=== PATIENT | female | born 1960 | race Caucasian/White ===

== ENCOUNTER 2020-02-07 15:00 | Emergency (ER) | payer MEDICARE, MEDICAID ==
[~2020-02-07] VITALS: Ht 157.4 cm; Wt 50.0 kg
[~2020-02-07 15:00] MED LIST: ALBU8.5H2 IH; ALPR.5T PO; AZIT-21 PO; BSP10T PO; CEFD300C3 PO; CEPH500C PO; CITA10TA70 PO; HDR4T GT; HYDR-34 PO; HYDR1TAB86 PO; IPRA3AMP19 IH; LISI1TAB6 PO; OXYC-309 PO; OXYC30TA76 PO; PRD20T PO; PREG50C PO; RT-COMBINH IH
[2020-02-07] MEDS ORDERED: NS IV 1000 ML 1,000 ML IV SCH (15:55)
[2020-02-07] MEDS ORDERED: KETOROLAC 30 MG/ML VIAL IVP ONE (16:00)
[2020-02-07 16:07] LABS: BASOPHILS % (AUTO) 0 % (0-10); EOSINOPHILS % (AUTO) 0 % (0-10); HEMATOCRIT 38 % (35-52); HEMOGLOBIN 12.3 G/DL (11.5-16.0); LYMPHOCYTES # (AUTO) 1.8 X 10^3 (1.0-4.0); LYMPHOCYTES % (AUTO) 26 % (12-44); MEAN CORPUSCULAR HEMOGLOBIN 28 PG (25-34); MEAN CORPUSCULAR HGB CONC 33 G/DL (32-36); MEAN CORPUSCULAR VOLUME 86 FL (80-99); MEAN PLATELET VOLUME 9.7 FL (7.4-10.4); MONOCYTES # (AUTO) 0.5 X 10^3 (0.0-1.0); MONOCYTES % (AUTO) 7 % (0-12); NEUTROPHILS # (AUTO) 4.6 X 10^3 (1.8-7.8); NEUTROPHILS % (AUTO) 67 % (42-75); PLATELET COUNT 331 10^3/uL (130-400); RED CELL DISTRIBUTION WIDTH 14.9 % (10.0-14.5); WHITE BLOOD COUNT 6.9 10^3/uL (4.3-11.0)
[2020-02-07 16:59] LABS: ALANINE AMINOTRANSFERASE 22 U/L (0-55); ALKALINE PHOSPHATASE 57 U/L (40-136); BILIRUBIN,TOTAL 0.2 MG/DL (0.1-1.0); BUN/CREATININE RATIO 12; CALCIUM 9.2 MG/DL (8.5-10.1); CARBON DIOXIDE 22 MMOL/L (21-32); CHLORIDE 106 MMOL/L (98-107); CREATININE SERUM 0.73 MG/DL (0.60-1.30); GFR ESTIMATED > 60; GLUCOSE 106 MG/DL (70-105); MAGNESIUM 1.9 MG/DL (1.6-2.4); POTASSIUM 3.3 MMOL/L (3.6-5.0); SODIUM 137 MMOL/L (135-145); TOTAL PROTEIN 7.8 GM/DL (6.4-8.2); TSH (THYROID ANALYZER) 1.66 UIU/ML (0.35-4.94)
--- NOTE | 2020-02-07 17:40 | NUR ---
AMB TO BATHROOM Addendum: 02/07/20 at 1750 by PMCCLURE PATIENT REPORTS THAT CON'T TO HAVE HEADACHE DR NOTIFIED.
[2020-02-07 17:47] LABS: BILIRUBIN,URINE NEGATIVE (NEGATIVE); CLARITY,URINE SL CLOUDY; COLOR,URINE YELLOW; GLUCOSE, URINE (UA) NEGATIVE (NEGATIVE); KETONES,URINE NEGATIVE (NEGATIVE); LEUKOCYTE ESTERASE ,URINE NEGATIVE (NEGATIVE); NITRITE,URINE NEGATIVE (NEGATIVE); PROTEIN,URINE NEGATIVE (NEGATIVE)
[2020-02-07 17:55] LABS: BACTERIA,URINE TRACE /HPF; RBC,URINE RARE /HPF; WBC,URINE RARE /HPF
[2020-02-07] MEDS ORDERED: lisINopril 20 MG (PRINIVIL) TABLET PO ONE (18:00)
[2020-02-07] MEDS ORDERED: KCL 10 MEQ TAB (MICRO K) PO ONE (18:00)
[2020-02-07] MEDS ORDERED: HYDROCHLOROTHIAZIDE 25 MG (HCTZ) TAB PO ONE (18:00)
[2020-02-07] MEDS ORDERED: LISI1TAB25 PO (18:07)
--- NOTE | 2020-02-07 18:07 | ED Headache ---
General Chief Complaint: Head/Cervical Problems Stated Complaint: HEADACHE Nursing Triage Note: AMB TO ROOM C/O HEADACHE INTERMITTEN FOR 3 MOMTHS WORSE LAST 3 DAYS HAS NOT BEEN TAKING B/P MEDS AND HER SISTER TOOK DID A FINGER STICK ON HER TODAY AND HER BLOOD SUGAR WAS IN THE 2OO. HAS TRIED OTC PAIN MEDS FOR HEADACHE. Nursing Sepsis Screen: No Definite Risk Source: patient Exam Limitations: no limitations History of Present Illness Date Seen by Provider: Feb 07, 2020 Time Seen by Provider: 15:48 Initial Comments This 59-year-old woman presents to the emergency room with primary complaint of headache. She has had intermittent headaches for the past 3 months but this is been worse the last 3 days. She has run out of her blood pressure medications and has not established with a primary care provider at the moment. She states this change was due to a change in insurance status. She denies any focal neurologic changes. She complains of dry mouth. She seems anxious. she also reports her glucometer readings on her sister's glucometer have been as high as the 200s. She is concerned that she has developed out of control diabetes. Allergies and Home Medications Allergies Coded Allergies: No Known Drug Allergies (Unverified , 12/09/09) Home Medications Albuterol 8.5 Gm Hfa.aer.ad, 2 PUFF IH PRN, (Reported) Albuterol Sulfate/Ipratropium 3 Ml Solution, 1 IH TID, (Reported) PER HOME NEBULIZER Alprazolam 0.5 Mg Tablet, 0.5 MG PO BID, (Reported) Buspirone Hcl 10 Mg Tablet, 10 MG PO TID, (Reported) Citalopram Hydrobromide 10 Mg Tablet, 10 MG PO DAILY, (Reported) Hctz/Lisinopril 1 Each Tablet, 1 EACH PO DAILY, (Reported) Ipratropium/Albuterol Sulfate 14.7 Gm Aer.w.adap, 2 PUFF IH TID, (Reported) Lisinopril/Hydrochlorothiazide 1 Each Tablet, 1 EACH PO DAILY Prescribed by: RAE SIERRA on 02/07/201806 Oxycodone Hcl 30 Mg Tab.sr.12h, 30 MG PO BID, (Reported) Oxycodone Hcl/Acetaminophen 1 Each Tablet, 1 EACH PO TID, (Reported) Patient Home Medication List Home Medication List Reviewed: Yes Review of Systems Review of Systems Constitutional: no symptoms reported Eyes: No Symptoms Reported Ears, Nose, Mouth, Throat: see HPI Respiratory: no symptoms reported Cardiovascular: no symptoms reported Gastrointestinal: no symptoms reported Genitourinary: no symptoms reported : No Musculoskeletal: no symptoms reported Skin: no symptoms reported Psychiatric/Neurological: See HPI Past Brjygyt-Dtdljf-Gfjljg Hx Past Med/Social Hx: Reviewed Nursing Past Med/Soc Hx Patient Social History Alcohol Use: Denies Use Recreational Drug Use: No Smoking Status: Current Everyday Smoker Recent Foreign Travel: No Contact w/Someone Who Travel: No Recent Infectious Disease Expo: No Recent Hopitalizations: Yes Immunizations Up To Date Date of Pneumonia Vaccine: Aug 14, 2011 Date of Influenza Vaccine: Aug 14, 2011 Past Medical History Surgeries: Yes (HYSTERECTOMY, CALCIUM DEP. IN RIGHT SHOULDER, HERNIATED DISC IN NECK) Hysterectomy, Orthopedic Respiratory: Yes Cardiac: Yes Hypertension Neurological: No Reproductive Disorders: No Gastrointestinal: No Musculoskeletal: Yes Endocrine: No HEENT: No Psychosocial: Yes Depression Blood Disorders: No Physical Exam Vital Signs Vital Signs - First Documented 02/07/20 15:44 Temp 36.8 Pulse 88 Resp 18 B/P (MAP) 189/112 (137) Pulse Ox 97 O2 Delivery Room Air Capillary Refill : Less Than 3 Seconds Height, Weight, BMI Height: '" Weight: lbs. oz. kg; 20.00 BMI Method:Stated General Appearance: WD/WN, mild distress HEENT: PERRL/EOMI, normal ENT inspection, TMs normal, pharynx normal, other (excessive cerumen in the left ear canal) Neck: normal inspection Cardiovascular: regular rate, rhythm, no edema, no murmur Respiratory: lungs clear, normal breath sounds, no respiratory distress Gastrointestinal: normal bowel sounds, soft, tenderness (slightly the right lower abdomen) Extremities: normal inspection, no pedal edema, no calf tenderness Psychiatric: alert, oriented x 3 Cra[place] Nerves: normal hearing, normal speech Motor/Sensory: no motor deficit, no sensory deficit Skin: normal color, warm/dry Progress/Results/Core Measures Results/Orders Lab Results Laboratory Tests Test 02/07/20 16:00 02/07/20 17:43 Range/Units White Blood Count 6.9 4.3-11.0 10^3/uL Red Blood Count 4.36 4.35-5.85 10^6/uL Hemoglobin 12.3 11.5-16.0 G/DL Hematocrit 38 35-52 % Mean Corpuscular Volume 86 80-99 FL Mean Corpuscular Hemoglobin 28 25-34 PG Mean Corpuscular Hemoglobin Concent 33 32-36 G/DL Red Cell Distribution Width 14.9 H 10.0-14.5 % Platelet Count 331 130-400 10^3/uL Mean Platelet Volume 9.7 7.4-10.4 FL Neutrophils (%) (Auto) 67 42-75 % Lymphocytes (%) (Auto) 26 12-44 % Monocytes (%) (Auto) 7 0-12 % Eosinophils (%) (Auto) 0 0-10 % Basophils (%) (Auto) 0 0-10 % Neutrophils # (Auto) 4.6 1.8-7.8 X 10^3 Lymphocytes # (Auto) 1.8 1.0-4.0 X 10^3 Monocytes # (Auto) 0.5 0.0-1.0 X 10^3 Eosinophils # (Auto) 0.0 0.0-0.3 10^3/uL Basophils # (Auto) 0.0 0.0-0.1 10^3/uL Sodium Level 137 135-145 MMOL/L Potassium Level 3.3 L 3.6-5.0 MMOL/L Chloride Level 106 98-107 MMOL/L Carbon Dioxide Level 22 21-32 MMOL/L Anion Gap 9 5-14 MMOL/L Blood Urea Nitrogen 9 7-18 MG/DL Creatinine 0.73 0.60-1.30 MG/DL Estimat Glomerular Filtration Rate > 60 BUN/Creatinine Ratio 12 Glucose Level 106 H 70-105 MG/DL Calcium Level 9.2 8.5-10.1 MG/DL Corrected Calcium 9.2 8.5-10.1 MG/DL Magnesium Level 1.9 1.6-2.4 MG/DL Total Bilirubin 0.2 0.1-1.0 MG/DL Aspartate Amino Transf (AST/SGOT) 25 5-34 U/L Alanine Aminotransferase (ALT/SGPT) 22 0-55 U/L Alkaline Phosphatase 57 40-136 U/L Total Protein 7.8 6.4-8.2 GM/DL Albumin 4.0 3.2-4.5 GM/DL TSH [place] Testing 1.66 0.35-4.94 UIU/ML Urine Color YELLOW Urine Clarity SL CLOUDY Urine pH 6.0 5-9 Urine Specific [place] 1.010 L 1.016-1.022 Urine Protein NEGATIVE NEGATIVE Urine Glucose (UA) NEGATIVE NEGATIVE Urine Ketones NEGATIVE NEGATIVE Urine Nitrite NEGATIVE NEGATIVE Urine Bilirubin NEGATIVE NEGATIVE Urine Urobilinogen 0.2 < = 1.0 MG/DL Urine Leukocyte Esterase NEGATIVE NEGATIVE Urine RBC (Auto) NEGATIVE NEGATIVE Urine RBC RARE /HPF Urine WBC RARE /HPF Urine Squamous Epithelial Cells 5-10 /HPF Urine Crystals NONE /LPF Urine Bacteria TRACE /HPF Urine Casts NONE /LPF Urine Mucus NEGATIVE /LPF Urine Culture Indicated NO My Orders Orders - RAE RIVAS MD Cbc With Automated Diff (02/07/20 15:55) Comprehensive Metabolic Panel (02/07/20 15:55) Magnesium (02/07/20 15:55) Thyroid Analyzer (02/07/20 15:55) Ua Culture If Indicated (02/07/20 15:55) Ed Iv/Invasive Line Start (02/07/20 15:55) Ns Iv 1000 Ml (Sodium Chloride 0.9%) (02/07/20 15:55) Ketorolac Injection (Toradol Injection) (02/07/20 16:00) Lisinopril Tablet (Zestril Tablet) (02/07/20 18:00) Hydrochlorothiazide Cap/Tablet (Hctz Cap (02/07/20 18:00) Tramadol Tablet (Ultram Tablet) (02/07/20 18:00) Potassium Chloride (Tablet) (Klor Con Ta (02/07/20 18:00) Medications Given in ED Current Medications Medications Dose Ordered Sig/Zulema Route Start Time Stop Time Status Last Admin Dose Admin Hydrochlorothiazide 25 mg ONCE ONCE PO 02/07/20 18:00 02/07/20 18:01 DC 02/07/20 18:11 25 MG Ketorolac Tromethamine 15 mg ONCE ONCE IVP 02/07/20 16:00 02/07/20 16:01 DC 02/07/20 16:09 15 MG Lisinopril 20 mg ONCE ONCE PO 02/07/20 18:00 02/07/20 18:01 DC 02/07/20 18:10 20 MG Potassium Chloride 20 meq ONCE ONCE PO 02/07/20 18:00 02/07/20 18:01 DC 02/07/20 18:10 20 MEQ Tramadol HCl 50 mg ONCE ONCE PO 02/07/20 18:00 02/07/20 18:01 DC 02/07/20 18:09 50 MG Vital Signs/I&O 02/07/20 02/07/20 15:44 18:14 Temp 36.8 Pulse 88 100 Resp 18 18 B/P (MAP) 189/112 (137) 145/97 Pulse Ox 97 96 O2 Delivery Room Air Room Air Blood Pressure Mean: 137 Progress Progress Note : Progress Note patient was noted to be quite hypertensive. She was first treated with Toradol and IV fluids for headache. She had some residual headache and tramadol was given. Patient was given lisinopril 20 mg and hydrochlorothiazide 25 mg. She p reviously had been on lisinopril/HCTZ with the lisinopril dose of 20 mg. The importance of following up with a primary care provider was stressed. Work-up was unremarkable. Departure Impression Primary Impression: Acute headache Qualified Codes: R51 - Headache Additional Impression: Essential hypertension Disposition: HOME, SELF-CARE Condition: Improved Departure-Patient Inst. Decision time for Depature: 18:04 Referrals: GARRETT CATALAN MD (PCP/Family) Primary Care Physician Patient Instructions: Headache, Adult, High Blood Pressure (DC) Add. Discharge Instructions: Drink plenty of water. Eat a low sugar, low carbohydrate diet. Follow-up with a primary care provider as soon as possible. Start your blood pressure medication tomorrow. For pain you may take ibuprofen up to 400 mg every 6 hours as needed and/or Tylenol (acetaminophen) up to 650 mg every 6 hours. Return to the emergency room if you have worsening symptoms or if you're just not improving after a couple days of following this treatment plan. All discharge instructions reviewed with patient and/or family. Voiced understanding. Scripts Lisinopril/Hydrochlorothiazide (Lisinopril-Hctz 20-12.5 mg Tab) 1 Each Tablet 1 EACH PO DAILY, #20 TAB Prov: RAE RIVAS MD 02/07/20 RAE RIVAS MD Feb 07, 2020 18:07
[2020-02-07 18:14] VITALS: BP 145/97
== END 2020-02-07 18:17 | disposition home or self-care (01) ==
LOC: EDUNIT# 15:00 → ER 15:01
DX: R51 Headache (principal); I10 Essential (primary) hypertension; F32.9 Major depressive disorder, single episode, unspecified; F41.9 Anxiety disorder, unspecified; F17.200 Nicotine dependence, unspecified, uncomplicated
CPT/HCPCS: 36415; 80053; 81000; 83735; 84443; 85025

== ENCOUNTER → 2020-10-09 | Outpatient (CLI) | payer MEDICARE, MEDICAID ==
[~2020-10-09] MED LIST changes: +LISI1TAB46 PO; +RT-ALBUTEROL SULF 2.5 MG/3 ML PRE-MIX VIAL INH ONE
== END ==
LOC: RT 13:00
PROVIDERS: ATTEND Nurse Practitioner Family
DX: J44.9 Chronic obstructive pulmonary disease, unspecified (principal)
CPT/HCPCS: 94060; 94726; 94729

== ENCOUNTER → 2020-10-09 | Outpatient (CLI) | payer MEDICARE, MEDICAID ==
[~2020-10-09] MED LIST changes: -RT-ALBUTEROL SULF 2.5 MG/3 ML PRE-MIX VIAL INH ONE
--- NOTE | 2020-10-09 15:18 | Diagnostic Imaging Report ---
EXAMINATION: CT chest without contrast (lung screening). TECHNIQUE: Multiple contiguous axial images were obtained through the chest without the use of intravenous contrast according to lung cancer screening protocol. All CT scans use one or more of the following dose optimizing techniques: automated exposure control, MA and/or KvP adjustment based on patient size and exam type or iterative reconstruction. HISTORY: 30 pack year history of smoking. COMPARISON: None available. FINDINGS: There is no edema or pneumonia. No pleural effusion. No pneumothorax. There is a 5 mm average diameter right upper lobe nodule. There is bronchial wall thickening and anterior fibrosis in both lungs. There is scarring in the right middle lobe and lingula. There is no axillary or supraclavicular lymphadenopathy. There is no mediastinal lymphadenopathy. There is a small hiatal hernia. Heart size is normal. There are moderate coronary artery calcifications. No pericardial effusion. Aorta is normal in caliber. Limited views of the upper abdomen are unremarkable. There are no suspicious osseus lesions. IMPRESSION: 1. Benign-appearing lung nodules. 2. 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 LUNG-RADS CATEGORY: 2 MODIFIER: S Dictated by: Dictated on workstation # [id number]
== END ==
LOC: RAD 12:56
PROVIDERS: ATTEND Nurse Practitioner Family
DX: R91.8 Other nonspecific abnormal finding of lung field (principal); F17.210 Nicotine dependence, cigarettes, uncomplicated
CPT/HCPCS: 71271

== ENCOUNTER → 2020-10-29 | Outpatient (CLI) | payer MEDICARE, MEDICAID ==
[~2020-10-29] VITALS: Ht 157.5 cm; Wt 50.0 kg
[~2020-10-29] MED LIST changes: +IPRA3AMP31 IH; +PANT40TA52 PO; +RT-ALBUINH IH
== END | disposition home or self-care (01) ==
LOC: PREOP 11:22
PROVIDERS: ATTEND Internal Medicine Critical Care Medicine
DX: Z01.818 Encounter for other preprocedural examination (principal)

== ENCOUNTER → 2020-10-29 | Outpatient (CLI) | payer MEDICARE, MEDICAID | LOC: LABNPT 09:39 | PROVIDERS: ATTEND Nurse Practitioner Family | DX: R91.8 Other nonspecific abnormal finding of lung field (principal); R05 Cough; Z20.822 Contact with and (suspected) exposure to COVID-19 | CPT/HCPCS: 87635 ==

== ENCOUNTER 2020-10-31 06:57 | Day surgery (SDC) | payer MEDICARE, MEDICAID ==
[2020-10-31] VITALS (9 sets, daily range): BP systolic 136–166; BP diastolic 69–78
[~2020-10-31] VITALS: Ht 158 cm; Wt 50.0 kg
[~2020-10-31 06:57] MED LIST changes: -IPRA3AMP31 IH; -RT-ALBUINH IH
[2020-10-31] MEDS ORDERED: LIDOCAINE PF 2% 5 ML (XYLOCAINE) VIAL INJ ONE (06:58)
[2020-10-31] MEDS ORDERED: LIDOCAINE PF 1% 2 ML AMP IJ ONE (06:58)
[2020-10-31] MEDS ORDERED: LIDOCAINE JELLY 2% 6 ML SYRINGE MM ONE (06:58)
[2020-10-31] MEDS ORDERED: LACTATED RINGERS 1,000 ML IV ONE (07:02)
[2020-10-31] MEDS ORDERED: LACTATED RINGERS 1,000 ML IV STA (07:10)
--- NOTE | 2020-10-31 08:44 | Pulmonary Procedures ---
Pulmonary Procedures Date of Procedure Date of Service: October 31, 2020 Bronch Bronchoscopy with RML bronchoalveolar lavage (BAL), transbronchial washes and, brushes. Preop DX bronchiectasis PNA Postop DX: same Complications: none After informed consent obtained and formal time out pt was sedated using Fentanyl and Versed. Bronchoscope was advanced through the nare and vocal cords. 1% lidocaine was used to anesthetize vocal cords, epiglottis, aly, and left/right main stem bronchus. An anatomical tour was undertaken down to the segmental bronchi bilaterally. No endobronchial lesions noted. From the RML a bronchoalveolar lavage (BAL), transbronchial washes and, brushes were obtained. Pt tolerated procedure well. No complications noted. Stat CXR is pending. AROLDO FREED DO October 31, 2020 08:44
[2020-10-31] MEDS ORDERED: MIDAZOLAM 5 MG/5 ML (VERSED) VIAL ONE (08:54)
[2020-10-31] MEDS ORDERED: fentaNYL INJ 100 MCG/2 ML AMP ONE (08:54)
--- NOTE | 2020-10-31 10:13 | Diagnostic Imaging Report ---
INDICATION: Follow-up bronchoscopy. EXAMINATION: Portable chest at 10:06 a.m. FINDINGS: Heart size and pulmonary vascularity are normal. Lungs are clear. There are no effusions or pneumothoraces. There is a small hiatal hernia. IMPRESSION: Negative chest. Dictated by: Dictated on workstation # [id number]
[2020-10-31] MEDS ORDERED: RT-ALBUINH IH (15:56)
[2020-10-31] MEDS ORDERED: IPRA3AMP31 IH ×2 (15:56)
== END 2020-10-31 10:10 | disposition home or self-care (01) ==
LOC: ENDO 06:57
PROVIDERS: ATTEND Internal Medicine Critical Care Medicine
DX: J47.9 Bronchiectasis, uncomplicated (principal); J18.9 Pneumonia, unspecified organism; R91.8 Other nonspecific abnormal finding of lung field; Z20.822 Contact with and (suspected) exposure to COVID-19; Z79.899 Other long term (current) drug therapy; F17.210 Nicotine dependence, cigarettes, uncomplicated
CPT/HCPCS: 71045; 87015; 87070; 87077; 87101; 87116; 87181; 87184; 87185; 87205; 87206; 88112; 88305; 88312

== ENCOUNTER → 2020-11-27 | Outpatient (CLI) | payer MEDICARE, MEDICAID ==
[~2020-11-27] MED LIST changes: +CATHETER FLUSH 10 ML SYR IV PRN; +HOLD METFORMIN - RECEIVED CONTRAST 20 ML VIAL IV SCH; +IOHEXOL 350 MG/ML 100 ML (OMNIPAQUE 350) VIAL IV ONE; +IPRA3AMP31 IH; +NS 100 ML (IVPB) BAG IV ONE; +RT-ALBUINH IH
[2020-11-27 13:24] LABS: BUN/CREATININE RATIO 15; CREATININE SERUM 0.81 MG/DL (0.60-1.30); GFR ESTIMATED > 60
--- NOTE | 2020-11-27 15:18 | Diagnostic Imaging Report ---
EXAMINATION: CT chest with intravenous contrast. TECHNIQUE: Multiple contiguous axial images were obtained through the chest after the uneventful administration of intravenous contrast. All CT scans use one or more of the following dose optimizing techniques: automated exposure control, MA and/or KvP adjustment based on patient size and exam type or iterative reconstruction. HISTORY: Streptococcal infectious disease. COMPARISON: 02/12/2011 FINDINGS: There is a right upper lobe scarring in the region of the previously seen pneumonia on the prior CTA of the chest. There is also scarring in the left upper lobe. There is mucous plugging and mild bronchial dilation. No pleural effusion. No pneumothorax. No suspicious nodules. There is no axillary or supraclavicular lymphadenopathy. There is no mediastinal lymphadenopathy. There is a moderate-sized hiatal hernia. Heart size is normal. There are mild coronary artery calcifications. No pericardial effusion. Aorta is normal in caliber. Limited views of the upper abdomen are unremarkable. There are no suspicious osseous lesions. IMPRESSION: 1. Bilateral upper lobe scarring in the previously seen area of consolidation suggestive of post infectious scarring. Differential is an endobronchial infection such as mycobacterium avium. Dictated by: Dictated on workstation # [id number]
== END ==
LOC: RAD 14:15
PROVIDERS: ATTEND Nurse Practitioner Family
DX: A49.1 Streptococcal infection, unspecified site (principal)
CPT/HCPCS: 36415; 71260; 82565; 84520

== ENCOUNTER 2021-04-19 15:45 | Inpatient (IN) | payer MEDICARE, MEDICAID ==
[~2021-04-19] VITALS: Ht 71 cm; Wt 62.7 kg
[~2021-04-19 15:45] MED LIST changes: -CATHETER FLUSH 10 ML SYR IV PRN; -HOLD METFORMIN - RECEIVED CONTRAST 20 ML VIAL IV SCH; -IOHEXOL 350 MG/ML 100 ML (OMNIPAQUE 350) VIAL IV ONE; -NS 100 ML (IVPB) BAG IV ONE
--- NOTE | 2021-04-19 15:51 | ED Abdominal Pain ---
General Stated Complaint: ABD PAIN Source of Information: Patient Exam Limitations: No Limitations History of Present Illness Date Seen by Provider: Apr 19, 2021 Time Seen by Provider: 15:50 Initial Comments To ER with c/o abdominal pain since midnight last night. Nausea but no vomiting. No fevers. No bowel movements. Nothing to eat since yesterday and not on anticoagulation. Primary care is [facility]. No history of abdominal surgery. Timing/Duration: 1-2 Days Severity/Quality: Moderate Location: Generalized Abdomen Radiation: No Radiation Activities at Onset: None Allergies and Home Medications Allergies Coded Allergies: No Known Drug Allergies (Unverified , 12/09/09) Patient Home Medication List Home Medication List Reviewed: Yes Albuterol Sulfate (Proair Hfa) 1 Puff Puff, 2 PUFF IH PRN, (Reported) Entered as Reported by: SOFIA CONNELL on 10/31/20 1556 Ipratropium/Albuterol Sulfate (Iprat-Albut 0.5-3(2.5) mg/3 ml) 3 Ml Ampul.neb, 3 ML IH Q4H PRN for SHORTNESS OF BREATH, (Reported) Entered as Reported by: SOFIA CONNELL on 10/31/20 1556 Ipratropium/Albuterol Sulfate (Iprat-Albut 0.5-3(2.5) mg/3 ml) 3 Ml Ampul.neb, 3 ML IH Q6H PRN for SHORTNESS OF BREATH, (Reported) Entered as Reported by: SOFIA CONNELL on 10/31/20 1556 Lisinopril/Hydrochlorothiazide (Lisinopril-Hctz 20-12.5 mg Tab) 1 Each Tablet, 1 EACH PO DAILY Prescribed by: RAE SIERRA on 02/07/20 1807 Pantoprazole Sodium (Pantoprazole Sodium) 40 Mg Tablet.dr, 40 MG PO DAILY, (Reported) Entered as Reported by: MAHESH BE on 10/29/20 1548 Review of Systems Review of Systems Constitutional: see HPI EENTM: No Symptoms Reported Respiratory: No Symptoms Reported Cardiovascular: See HPI Gastrointestinal: See HPI, Abdominal Pain Genitourinary: No Symptoms Reported Musculoskeletal: no symptoms reported Skin: no symptoms reported Psychiatric/Neurological: No Symptoms Reported Endocrine: No Symptoms Reported Past Huoknwe-Hnuien-Tvevsq Hx Immunizations Up To Date Tetanus Booster (TDap): Unknown Past Medical History Surgeries: Yes (HYSTERECTOMY, CALCIUM DEP. 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 oz. kg; 20.02 BMI Method:Stated General Appearance: WD/WN, moderate distress, other (Chronically ill appears older than stated age) HEENT: PERRL/EOMI, normal ENT inspection Neck: non-tender, full range of motion Respiratory: no respiratory distress, no accessory muscle use, wheezing Cardiovascular: regular rate, rhythm Gastrointestinal: abnormal bowel sounds (Hypoactive bowel sounds abdomen firm, diffuse rebound tenderness), distended, guarding, rebound, tenderness Neurologic/Psychiatric: alert, normal mood/affect, oriented x 3 Skin: normal color, warm/dry Focused Exam Lactate Level 04/19/21 16:20: Lactic Acid Level 3.77*H Lactic Acid Level Laboratory Tests Test 04/19/21 16:20 Lactic Acid Level 3.77 MMOL/L (0.50-2.00) *H Procedures/Interventions Lumen: triple Central Line Procedure: betadine prep, sterile drapes applied, sterile dressing applied Position: internal jugular (R) Anesthesia: local Volume Anesthetic (ccs): 4 Complications: none Post Position: sutured, good blood return, position confirmed w/ CXR IV : Location: Right Site: Antecubital IV Catheter Type: Peripheral IV Progress/Results/Core Measures Results/Orders Lab Results Laboratory Tests Test 04/19/21 16:20 04/19/21 16:42 Range/Units White Blood Count 12.5 H 4.3-11.0 10^3/uL Red Blood Count 4.63 3.80-5.11 10^6/uL Hemoglobin 11.9 11.5-16.0 g/dL Hematocrit 38 35-52 % Mean Corpuscular Volume 83 80-99 fL Mean Corpuscular Hemoglobin 26 25-34 pg Mean Corpuscular Hemoglobin Concent 31 L 32-36 g/dL Red Cell Distribution Width 16.3 H 10.0-14.5 % Platelet Count 317 130-400 10^3/uL Mean Platelet Volume 10.3 9.0-12.2 fL Immature Granulocyte % (Auto) 1 % Neutrophils (%) (Auto) 87 H 42-75 % Lymphocytes (%) (Auto) 5 L 12-44 % Monocytes (%) (Auto) 7 0-12 % Eosinophils (%) (Auto) 0 0-10 % Basophils (%) (Auto) 0 0-10 % Neutrophils # (Auto) 10.9 H 1.8-7.8 10^3/uL Lymphocytes # (Auto) 0.7 L 1.0-4.0 10^3/uL Monocytes # (Auto) 0.8 0.0-1.0 10^3/uL Eosinophils # (Auto) 0.0 0.0-0.3 10^3/uL Basophils # (Auto) 0.0 0.0-0.1 10^3/uL Immature Granulocyte # (Auto) 0.1 0.0-0.1 10^3/uL Neutrophils % (Manual) 77 % Lymphocytes % (Manual) 6 % Monocytes % (Manual) 7 % Band Neutrophils 10 % Blood Morphology Comment NORMAL Prothrombin Time 16.6 H 12.2-14.7 SEC INR Comment 1.3 0.8-1.4 Activated Partial Thromboplast Time 76 H 24-35 SEC Sodium Level 135 135-145 MMOL/L Potassium Level 4.0 3.6-5.0 MMOL/L Chloride Level 103 98-107 MMOL/L Carbon Dioxide Level 14 L 21-32 MMOL/L Anion Gap 18 H 5-14 MMOL/L Blood Urea Nitrogen 42 H 7-18 MG/DL Creatinine 2.34 H 0.60-1.30 MG/DL Estimat Glomerular Filtration Rate 21 BUN/Creatinine Ratio 18 Glucose Level 111 H 70-105 MG/DL Lactic Acid Level 3.77 *H 0.50-2.00 MMOL/L Calcium Level 9.3 8.5-10.1 MG/DL Corrected Calcium 9.5 8.5-10.1 MG/DL Total Bilirubin 0.7 0.1-1.0 MG/DL Aspartate Amino Transf (AST/SGOT) 49 H 5-34 U/L Alanine Aminotransferase (ALT/SGPT) 24 0-55 U/L Alkaline Phosphatase 75 40-136 U/L Total Protein 7.6 6.4-8.2 GM/DL Albumin 3.8 3.2-4.5 GM/DL Lipase 54 8-78 U/L SARS-CoV-2 RNA (RT-PCR) Not Detected Not Detecte My Orders Orders - BENI ARANDA [employer] 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 Cbc With Automated Diff (04/19/21 15:48) Comprehensive Metabolic Panel (04/19/21 15:48) Blood Culture (04/19/21 15:48) Sputum Culture (04/19/21 15:48) Urinalysis (04/19/21 15:48) Urine Culture (04/19/21 15:48) Protime With Inr (04/19/21 15:48) Partial Thromboplastin Time (04/19/21 15:48) Chest 1 View, Ap/Pa Only (04/19/21 15:48) Ed Iv/Invasive Line Start (04/19/21 15:48) Ed Iv/Invasive Line Start (04/19/21 15:48) Vital Signs Adult Sepsis Patie Q15M (04/19/21 15:48) O2 (04/19/21 15:48) Remove Rings In Anticipation O (04/19/21 15:48) Lactic Acid Analyzer (04/19/21 15:48) Lipase (04/19/21 15:48) Lactated Ringers (Lr 1000 Ml Iv Solution (04/19/21 16:00) Fentanyl Inj (Sublimaze Injection) (04/19/21 16:00) Ct Abdomen/Pelvis W (04/19/21 16:18) Ekg Tracing (04/19/21 16:26) Covid 19 Inhouse Test (04/19/21 16:26) Manual Differential (04/19/21 16:20) Iohexol Injection (Omnipaque 350 Mg/Ml 1 (04/19/21 16:45) Received Contrast (Hold Metformin- Contr (04/19/21 16:45) Ns (Ivpb) (Sodium Chloride 0.9% Ivpb Bag (04/19/21 16:45) Hydromorphone Injection (Dilaudid Inject (04/19/21 16:45) Ondansetron Injection (Zofran Injectio (04/19/21 17:00) Ondansetron Injection (Zofran Injectio (04/19/21 16:47) Heparin Drip 92398 Unit/500ml (Heparin (04/19/21 17:00) Heparin (Bolus Per Protocol) (Heparin (B (04/19/21 17:00) Piperacillin Sodium/Tazobactam (Zosyn Vi (04/19/21 17:00) Medications Given in ED Current Medications Medications Dose Ordered Sig/Zulema Route Start Time Stop Time Status Last Admin Dose Admin Fentanyl Citrate 50 mcg ONCE ONCE IVP 04/19/21 16:00 04/19/21 16:01 DC 04/19/21 16:21 50 MCG Hydromorphone HCl 0.5 mg ONCE ONCE IV 04/19/21 16:45 04/19/21 16:46 DC 04/19/21 16:53 0.5 MG Iohexol 100 ml ONCE ONCE IV 04/19/21 16:45 04/19/21 16:46 DC 04/19/21 16:37 66 ML Ondansetron HCl 4 mg ONCE ONCE IVP 04/19/21 17:00 04/19/21 17:01 DC 04/19/21 16:53 4 MG Sodium Chloride 100 ml ONCE ONCE IV 04/19/21 16:45 04/19/21 16:46 DC 04/19/21 16:37 80 ML Vital Signs/I&O 04/19/21 15:45 Temp 37.0 Pulse 109 Resp 20 B/P (MAP) 88/41 (57) Pulse Ox 94 O2 Delivery Room Air Departure Communication (Admissions) 1704 pain is better controlled after Dilaudid. She has poor IV access so I will start a central line before we heparinize her. I spoke with Dr. Cox on-call for surgery and Dr. Cordero from hospitalist service. Will admit to ICU on full heparin protocol as I have concern about ischemic get given the pain out of proportion to exam without significant CT findings. She does have an elevated lactic acid. 1757-blood pressure currently 80/56. She weighs 32 kg and has received 500 mill normal saline bolus from EMS and 1 L LR bolus from us totaling 1500 mL. If the next map reading is under 65 we will start pressors. Family Conversation NAME: CASIE FINLEY [facility] REC#: [id number] PT STATUS: REG ER : 1960 PHYSICIAN: BENI ARANDA APRN ADMIT DATE: 04/19/21/ER Draft Date of Exam:04/19/21 CT ABDOMEN/PELVIS W CT ABDOMEN/PELVIS W TECHNIQUE: Multiple contiguous axial images were obtained through the abdomen and pelvis after administration of intravenous contrast. All CT scans use one or more of the following dose optimizing techniques: automated exposure control, MA and/or KvP adjustment based on patient size and exam type or iterative reconstruction. INDICATION: Abdominal pain COMPARISON: CT chest from 11/27/2020 FINDINGS: Lower chest: Chronic subsegmental atelectasis within the right middle lobe. No pericardial or pleural effusion. Peritoneum: No free intraperitoneal air or fluid. Liver and biliary system: The liver is normal. The gallbladder is normal. No biliary duct dilation. Spleen and Pancreas: Spleen is normal. The pancreas enhances normally without mass lesion or peripancreatic inflammatory changes. Adrenals: Normal. tract: The kidneys enhance normally without suspicious mass or obstruction. Urinary bladder is distended without wall thickening. Hysterectomy. GI tract: Large paraesophageal hiatal hernia is fluid-filled. The stomach within the abdomen is also fluid-filled. No dilated loops of small bowel. The colon is filled with stool throughout its entirety as well as air within the transverse colon. In the mid to upper rectum there is a short segment of luminal narrowing. No pneumatosis. Appendix is not seen with certainty. Vasculature and Lymph nodes: Normal caliber aorta. No abdominal or pelvic lymphadenopathy. Musculoskeletal: No concerning osseous lesion. IMPRESSION: 1. Large volume of stool and air throughout the colon without colitis or diverticulitis. The short segment of luminal narrowing in the mid-upper rectum that could represent a site of peristalsis, although rectal neoplasm is a possibility. Correlation with endoscopy is suggested, as patient condition permits. 2. Large hiatal hernia. Dictated on workstation # [id number] Dict: 04/19/21 1639 Trans: 04/19/21 1649 CVB [id number] Interpreted by: ISMAEL HUSTON MD Electronically signed by: Was able to obtain IV access with ultrasound guidance. 20-gauge left antecubital fossa. Concern for potential aortic pathology, for this reason I would prefer not to wait on kidney function prior to administering contrast for evaluation of this abdominal pain. I discussed with the patient the potential that IV contrast could worsen kidney function if there is pre-existing kidney dysfunction. Discussed with her that I think that this risk is offset by the potential benefit of early diagnosis of a potentially life-threatening pathology. She agrees to proceed. Impression Primary Impression: Abdominal pain Additional Impression: ALIVIA (acute kidney injury) Disposition: ADMITTED INPATIENT Condition: Stable Admissions Decision to Admit Reason: Admit from ER (General) Decision to Admit/Date: Apr 19, 2021 Time/Decision to Admit Time: 17:04 Departure-Patient Inst. Referrals: GARRETT CATALAN MD (PCP/Family) Primary Care Physician BENI ARANDA APRN Apr 19, 2021 15:51
[2021-04-19] MEDS ORDERED: fentaNYL INJ 100 MCG/2 ML AMP IVP ONE (16:00)
[2021-04-19] MEDS ORDERED: LACTATED RINGERS 1,000 ML IV SCH (16:00)
[2021-04-19 16:29] LABS: BASOPHILS % (AUTO) 0 % (0-10); EOSINOPHILS % (AUTO) 0 % (0-10); HEMATOCRIT 38 % (35-52); HEMOGLOBIN 11.9 g/dL (11.5-16.0); LYMPHOCYTES # (AUTO) 0.7 10^3/uL (1.0-4.0); LYMPHOCYTES % (AUTO) 5 % (12-44); MEAN CORPUSCULAR HEMOGLOBIN 26 pg (25-34); MEAN CORPUSCULAR HGB CONC 31 g/dL (32-36); MEAN CORPUSCULAR VOLUME 83 fL (80-99); MEAN PLATELET VOLUME 10.3 fL (9.0-12.2); MONOCYTES # (AUTO) 0.8 10^3/uL (0.0-1.0); MONOCYTES % (AUTO) 7 % (0-12); NEUTROPHILS # (AUTO) 10.9 10^3/uL (1.8-7.8); NEUTROPHILS % (AUTO) 87 % (42-75); PLATELET COUNT 317 10^3/uL (130-400); WHITE BLOOD COUNT 12.5 10^3/uL (4.3-11.0)
[2021-04-19 16:41] LABS: INR 1.3 (0.8-1.4); PROTHROMBIN TIME PATIENT 16.6 SEC (12.2-14.7)
[2021-04-19] MEDS ORDERED: IOHEXOL 350 MG/ML 100 ML (OMNIPAQUE 350) VIAL IV ONE (16:45)
[2021-04-19] MEDS ORDERED: HYDROmorphone 2 MG/ML VIAL (DILAUDID) IV ONE ×2 (16:45→17:30)
[2021-04-19] MEDS ORDERED: HOLD METFORMIN - RECEIVED CONTRAST 20 ML VIAL IV SCH (16:45)
[2021-04-19] MEDS ORDERED: NS 100 ML (IVPB) BAG IV ONE (16:45)
[2021-04-19] MEDS ORDERED: ONDANSETRON 4 MG/2 ML (SDV) Z0FRAN ONE (16:47)
--- NOTE | 2021-04-19 16:48 | Diagnostic Imaging Report ---
INDICATION: Sepsis. EXAMINATION: Chest 04/19/2021 COMPARISON: 10/31/2020 FINDINGS: There is linear scarring or atelectasis of the right lung base with remaining lungs clear. No infiltrates or effusions. No pneumothorax. Heart and pulmonary vasculature appear unremarkable. IMPRESSION: 1. Atelectasis or scar at the right lung base otherwise negative chest. Dictated by: Dictated on workstation # [id number]
--- NOTE | 2021-04-19 16:49 | Diagnostic Imaging Report ---
CT ABDOMEN/PELVIS W TECHNIQUE: Multiple contiguous axial images were obtained through the abdomen and pelvis after administration of intravenous contrast. All CT scans use one or more of the following dose optimizing techniques: automated exposure control, MA and/or KvP adjustment based on patient size and exam type or iterative reconstruction. INDICATION: Abdominal pain COMPARISON: CT chest from 11/27/2020 FINDINGS: Lower chest: Chronic subsegmental atelectasis within the right middle lobe. No pericardial or pleural effusion. Peritoneum: No free intraperitoneal air or fluid. Liver and biliary system: The liver is normal. The gallbladder is normal. No biliary duct dilation. Spleen and Pancreas: Spleen is normal. The pancreas enhances normally without mass lesion or peripancreatic inflammatory changes. Adrenals: Normal. tract: The kidneys enhance normally without suspicious mass or obstruction. Urinary bladder is distended without wall thickening. Hysterectomy. GI tract: Large paraesophageal hiatal hernia is fluid-filled. The stomach within the abdomen is also fluid-filled. No dilated loops of small bowel. The colon is filled with stool throughout its entirety as well as air within the transverse colon. In the mid to upper rectum there is a short segment of luminal narrowing. No pneumatosis. Appendix is not seen with certainty. Vasculature and Lymph nodes: Normal caliber aorta. No abdominal or pelvic lymphadenopathy. Musculoskeletal: No concerning osseous lesion. IMPRESSION: 1. Large volume of stool and air throughout the colon without colitis or diverticulitis. The short segment of luminal narrowing in the mid-upper rectum that could represent a site of peristalsis, although rectal neoplasm is a possibility. Correlation with endoscopy is suggested, as patient condition permits. 2. Large hiatal hernia. Dictated by: Dictated on workstation # [id number]
[2021-04-19 16:51] LABS: ALBUMIN 3.8 GM/DL (3.2-4.5); BILIRUBIN,TOTAL 0.7 MG/DL (0.1-1.0); CALCIUM 9.3 MG/DL (8.5-10.1); CREATININE SERUM 2.34 MG/DL (0.60-1.30); TOTAL PROTEIN 7.6 GM/DL (6.4-8.2)
[2021-04-19 16:56] LABS: BAND NEUTROPHILS 10 %; LYMPHOCYTES % (MANUAL) 6 %; MONOCYTES % (MANUAL) 7 %; NEUTROPHILS % (MANUAL) 77 %; RBC MORPH NORMAL
[2021-04-19] MEDS ORDERED: ONDANSETRON 4 MG/2 ML (SDV) Z0FRAN IVP ONE (17:00)
[2021-04-19] MEDS ORDERED: HEParin 1000 UNIT/ML (10ML VIAL) FOR BOLUS IV ONE (17:00)
[2021-04-19] MEDS ORDERED: PIPERACILLIN SODIUM/TAZOBACTAM 4.5 GM in NS (IVPB) 100 ML IV ONE (17:00)
[2021-04-19] MEDS ORDERED: HEParin DRIP 25000 UNIT/500ML 500 ML IV ONE (17:00)
[2021-04-19] MEDS ORDERED: HYDROmorphone 2 MG/ML VIAL (DILAUDID) ONE (17:28)
--- NOTE | 2021-04-19 17:40 | Tele-ICU Consult ---
History of Present Illness History of Present Illness Date Seen by Provider: Apr 19, 2021 Time Seen by Provider: 17:02 Date of Admission This virtual visit was conducted using real time audio/video. Thank you for asking us to see this patient for abd pain R/O ischemic bowel.\\. HPC: Recent events: Presented through with abd since M/N. PMH: Htn., dep. SH: smoking history: N FH: Non-contributory ROS: as in HPI PE: 107 ST 90/40 O2 sat 94% on RA. HEENT: No obvious masses, adenopathy or JVD. Chest: clear to auscultation. CV: RRR S1 S2 No murmur or added sounds. Abd: Diffusely tender. Bowel sounds diminished. : Unremarkable. [place] DRIVER/psychiatric: Alert and oriented, grossly intact. No obvious focal findings. Extremities: No edema. Capillary refill < 3 seconds. Skin: unremarkable. Elevated WCC 12,5, BUN 42, Creat 2.34, lactate 3.77 A/P: Abd. Pain/R/O isch bowel: Surgery consult pending Available chart/ vitals / labs / images reviewed. Video assessment done using teleICU camera, rest of exam as per RN. Critical Care: critically ill patient with ALIVIA and sepsis.Cont IVF, Zosyn. Would use Fentanyl for pain relief as drug metabolites have no renal excretion. Discussed with RADHA Mercado. Asked RN to reach out to eICU if any questions or concerns later. Time spent with patient/coordination of care with other health professionals (mins): 34. Allergies and Home Medications Allergies Coded Allergies: No Known Drug Allergies (Unverified , 12/09/09) Home Medications Albuterol Sulfate 1 Puff Puff, 2 PUFF IH PRN, (Reported) 1 PUFF = 90 MCG Ipratropium/Albuterol Sulfate 3 Ml Ampul.neb, 3 ML IH Q4H PRN for SHORTNESS OF BREATH, (Reported) Ipratropium/Albuterol Sulfate 3 Ml Ampul.neb, 3 ML IH Q6H PRN for SHORTNESS OF BREATH, (Reported) Lisinopril/Hydrochlorothiazide 1 Each Tablet, 1 EACH PO DAILY Prescribed by: RAE SIERRA on 02/07/20 180 Pantoprazole Sodium 40 Mg Tablet.dr, 40 MG PO DAILY, (Reported) Past Medical/Social/Family Hx Patient Social History Tobacco Use?: Yes Tobacco type used: Cigarettes Smoking Status: Current Everyday Smoker Use of E-Cig and/or Vaping dev: No Substance use?: Yes Substance type: Marijuana Alcohol Use?: No Pt stated abuse/neglect: No Immunizations Up To Date Influenza Vaccine Up-to-Date: No; Not Current Date of Pneumonia Vaccine: Aug 14, 2011 Current Status status: No status: No Advance Directives: No Communicates: Verbally Primary Language: Italian Preferred Spoken Language: Italian Is interpretation needed?: No Implanted or Applied Medical D: None Review of Systems Constitutional: see HPI EENTM: see HPI Respiratory: see HPI Gastrointestinal: see HPI Genitourinary: see HPI Musculoskeletal: see HPI Skin: see HPI All Other Systems Reviewed Negative Unless Noted: Yes Sepsis Event Evaluation Height, Weight, BMI Height: '" Weight: lbs. oz. kg; 103.00 BMI Method:Stated Exam Exam Patient acknowledged, consented, and participated in this virtual visit which was conducted using real time audio/video Vital Signs Date Time Temp Pulse Resp B/P (MAP) Pulse Ox O2 Delivery O2 Flow Rate FiO2 04/19/21 15:45 37.0 109 20 88/41 (57) 94 Room Air Height & Weight Height: '" Weight: lbs. oz. kg; 103.00 BMI Method:Stated General Appearance: Anxious, Cachetic Capillary Refill: Less Than 3 Seconds Peripheral Pulses: 1+ Dorsalis Pedis (R), 1+ Left Dors-Pedis (L) (See free text) Gastrointestinal: abnormal bowel sounds (Hypoactive bowel sounds abdomen firm, diffuse rebound tenderness), distended, guarding, rebound, tenderness Results Lab Laboratory Tests 04/19/21 16:20 Assessment/Plan Assessment/Plan See free text. Critical Care: Critically Ill Patient MONSERRAT ZAMORA MD Apr 19, 2021 17:40
--- NOTE | 2021-04-19 17:53 | Diagnostic Imaging Report ---
INDICATION: Central venous catheter placement. EXAMINATION: Single view of the chest. FINDINGS: Since examination of earlier in the day, there has been placement of right jugular central venous catheter with tip projecting over the upper superior vena cava. There is no pneumothorax. Lungs remain clear. IMPRESSION: No evidence of complication post right jugular central venous catheter placement. Dictated by: Dictated on workstation # [id number]
--- NOTE | 2021-04-19 19:28 | HISTORY AND PHYSICAL ---
DATE OF SERVICE: ATTENDING PRIMARY CARE PHYSICIAN: Dr. Michael Spivey. HISTORY OF PRESENT ILLNESS: The patient is a 60-year-old female, who presented to [facility] Emergency Department with complaints of abdominal pain starting at midnight. She reports some associated nausea; however, no vomiting. She states that she has not had a bowel movement for the past several days. She also reports that she has not been hungry as well. She does not report any previous history of any abdominal surgeries. A CT scan was performed, which did show large volume of stool throughout the colon without evidence of colitis or diverticulitis. There was a short segment of luminal narrowing in the mid upper rectum as well. PAST MEDICAL HISTORY: Degenerative joint disease, hypertension, COPD, depression, PAST SURGICAL HISTORY: Total hysterectomy, right shoulder surgery. ALLERGIES: No known drug allergies. MEDICATIONS: Albuterol 1 puff q.4 hours p.r.n., ipratropium/albuterol breathing treatments q.6 hours p.r.n., lisinopril/hydrochlorothiazide 20/12.5 mg daily, Protonix 40 mg daily. SOCIAL HISTORY: Previous smoker, negative alcohol. FAMILY HISTORY: Noncontributory. VITAL SIGNS: Temperature 37.0, blood pressure 88/41, pulse 109, respirations 20, pulse ox 94% on room air. REVIEW OF SYSTEMS: Obese female currently guarded secondary to the crampy abdominal pain. She is not experiencing any nausea, no vomiting. She states that she has not had a bowel movement the past several days with known history of constipation. No red blood per rectum, no dark tarry stools. No fever, chills, no recent inadvertent weight loss. All other review of systems negative. PHYSICAL EXAMINATION: CHEST: Distant breath sounds bilaterally with scattered wheezes. HEART: Regular, no murmurs. EXTREMITIES: +1/3 bilateral lower extremity edema. Negative Homans sign. HEENT: No scleral icterus. NECK: No cervical lymphadenopathy. ABDOMEN: Soft, slightly distended. There is mild discomfort globally upon deep palpation. No peritoneal signs. No hernias. SKIN: Warm, dry. LABORATORY DATA: WBC 12.5, hemoglobin 11.9, hematocrit 38, platelets 317. BUN 42, creatinine 2.34. ASSESSMENT AND PLAN: A 60-year-old female with constipation as well as the possibility of a rectal stricture and possible neoplastic process which will need to be evaluated by a colonoscopy, which we will schedule on this admission. Job ID: [id number] DocumentID: [id number] Dictated Date: 04/19/2021 19:02:09 [employer]elance Digital Project Manager Date: 04/19/2021 19:27:35 Dictated By: RICARDO BAE MD [facility]
[2021-04-19] MEDS ORDERED: HEParin DRIP 25000 UNIT/500ML 500 ML IV SCH (19:45)
[2021-04-19] MEDS ORDERED: ONDANSETRON 4 MG/2 ML (SDV) Z0FRAN IV PRN (19:45)
[2021-04-19] MEDS ORDERED: HEParin 1000 UNIT/ML (10ML VIAL) FOR BOLUS IV SCH (19:45)
[2021-04-19] MEDS: LACTATED RINGERS 1,000 ML IV SCH (19:49)
[2021-04-19 20:17] VITALS: BP 88/41
[2021-04-19] MEDS: FLEET ENEMA ADULT 1 EA BTL PR SCH (21:20)
--- NOTE | 2021-04-19 21:24 | Diagnostic Imaging Report ---
EXAM: Abdomen/KUB 1 view. INDICATION: Abdominal pain. Possible small bowel obstruction or ischemia. COMPARISON: CT abdomen and pelvis 04/19/2021. FINDINGS: Persistent gaseously dilated loop of colon in the left upper abdomen. There remains a large amount of stool throughout much of the remaining colon and rectum. Nonspecific small bowel gas pattern. No suspicious radiopaque density. IMPRESSION: Radiograph of the abdomen appears similar to the CT performed earlier today including large amount of stool throughout much of the colon, a gaseously dilated loop of colon in the left upper quadrant and nonspecific small bowel gas pattern. Dictated by: Dictated on workstation # [id number]
--- NOTE | 2021-04-19 21:25 | Progress Note ---
Standard Progress Note Progress Notes/Assess & Plan Date Seen by a Provider: Apr 19, 2021 Time Seen by a Provider: 21:25 Progress/Assessment & Plan repeat lactate 2.2 about same, abd described by RN as firm wit hypoactive bowel sounds, plan right now is colonscopy on 04/21 will repeat KUB and repeat lactate, if rising will ask surgeon to re visit pt chetanight. Zack Munroe MD Focused Exam Lactate Level 04/19/21 16:20: Lactic Acid Level 3.77*H 04/19/21 18:25: Lactic Acid Level 2.02*H 04/19/21 20:15: Lactic Acid Level 2.12*H Lactic Acid Level Laboratory Tests Test 04/19/21 18:25 04/19/21 20:15 Lactic Acid Level 2.02 MMOL/L (0.50-2.00) *H 2.12 MMOL/L (0.50-2.00) *H MIRANDA MUNROE MD Apr 19, 2021 21:25
--- NOTE | 2021-04-19 22:20 | Progress Note ---
Standard Progress Note Progress Notes/Assess & Plan Date Seen by a Provider: Apr 19, 2021 Time Seen by a Provider: 22:20 Progress/Assessment & Plan BP marginal at 85/63, KUB shows stool, c/o severe abd pain will give fluid challange and possible enema Zack Munroe MD Focused Exam Lactate Level 04/19/21 16:20: Lactic Acid Level 3.77*H 04/19/21 18:25: Lactic Acid Level 2.02*H 04/19/21 20:15: Lactic Acid Level 2.12*H Lactic Acid Level Laboratory Tests Test 04/19/21 18:25 04/19/21 20:15 Lactic Acid Level 2.02 MMOL/L (0.50-2.00) *H 2.12 MMOL/L (0.50-2.00) *H MIRANDA MUNROE MD Apr 19, 2021 22:20
[2021-04-19] MEDS ORDERED: NS IV 500 ML 500 ML ONE (22:22)
[2021-04-19] MEDS: NS IV 500 ML 500 ML IV SCH (22:40)
[2021-04-19] MEDS: PIPERACILLIN/TAZO 4.5 GM/NS 100 ML IV SCH ×2 (23:06)
--- NOTE | 2021-04-19 23:50 | Progress Note ---
Standard Progress Note Progress Notes/Assess & Plan Date Seen by a Provider: Apr 19, 2021 Time Seen by a Provider: 23:48 Progress/Assessment & Plan BP responded briefly to IVF, got enema but no BM, pain 01/22, lactate now normal a 1.8, will give small dose of Dilaudid Zack Munroe MD Focused Exam Lactate Level 04/19/21 18:25: Lactic Acid Level 2.02*H 04/19/21 20:15: Lactic Acid Level 2.12*H 04/19/21 23:05: Lactic Acid Level 1.82 Lactic Acid Level Laboratory Tests Test 04/19/21 20:15 04/19/21 23:05 Lactic Acid Level 2.12 MMOL/L (0.50-2.00) *H 1.82 MMOL/L (0.50-2.00) MIRANDA MUNROE MD Apr 19, 2021 23:49
[2021-04-19] MEDS: HYDROmorphone 2 MG/ML VIAL (DILAUDID) IV PRN (23:53)
[2021-04-20] VITALS (9 sets, daily range): BP systolic 85–128; BP diastolic 43–71
[2021-04-20] MEDS: LACTATED RINGERS 1,000 ML IV SCH ×2 (03:18→11:15)
[2021-04-20] MEDS: HYDROmorphone 2 MG/ML VIAL (DILAUDID) IV PRN ×3 (04:10→11:50)
[2021-04-20 04:22] LABS: BASOPHILS % (AUTO) 0 % (0-10); EOSINOPHILS % (AUTO) 0 % (0-10); HEMATOCRIT 30 % (35-52); HEMOGLOBIN 9.7 g/dL (11.5-16.0); LYMPHOCYTES # (AUTO) 0.6 10^3/uL (1.0-4.0); LYMPHOCYTES % (AUTO) 9 % (12-44); MEAN CORPUSCULAR HEMOGLOBIN 26 pg (25-34); MEAN CORPUSCULAR HGB CONC 32 g/dL (32-36); MEAN CORPUSCULAR VOLUME 80 fL (80-99); MONOCYTES # (AUTO) 0.4 10^3/uL (0.0-1.0); MONOCYTES % (AUTO) 6 % (0-12); NEUTROPHILS # (AUTO) 5.6 10^3/uL (1.8-7.8); NEUTROPHILS % (AUTO) 84 % (42-75); PLATELET COUNT 251 10^3/uL (130-400); WHITE BLOOD COUNT 6.7 10^3/uL (4.3-11.0)
[2021-04-20 04:41] LABS: ALBUMIN 2.8 GM/DL (3.2-4.5); BILIRUBIN,TOTAL 0.6 MG/DL (0.1-1.0); CALCIUM 7.8 MG/DL (8.5-10.1); CREATININE SERUM 2.07 MG/DL (0.60-1.30); MAGNESIUM 2.9 MG/DL (1.6-2.4); PHOSPHORUS 5.4 MG/DL (2.3-4.7); POTASSIUM 4.7 MMOL/L (3.6-5.0); TOTAL PROTEIN 5.6 GM/DL (6.4-8.2)
[2021-04-20] MEDS: RT-ALBUTEROL SULF 2.5 MG/3 ML PRE-MIX VIAL INH PRN ×2 (08:10→11:37)
[2021-04-20] MEDS: FLEET ENEMA ADULT 1 EA BTL PR SCH (08:46)
[2021-04-20] MEDS: NS IV 1000 ML 1,000 ML IV SCH ×3 (09:11→14:33)
--- NOTE | 2021-04-20 09:37 | Tele-ICU Progress Note ---
Subjective Date Seen by a Provider: Apr 20, 2021 Time Seen by a Provider: 09:37 Subjective/Events-last exam This patient presented with nausea and abdominal pain and a CT of the abdomen and KUB x-rays revealed there is a lot of fecal loading in the colon associated with dilatation of small bowel. She is in moderate distress and pain due to abdominal distention and nausea. She is hypotensive and tachycardic. Her lactic acidosis is improving. She has a history of for hypertension COPD and depression but her chest x-ray did not reveal any overt pneumonia or congestive changes video visit made and discussed with the RN as well as the patient. She did not have a bowel movement for about a week or so. Review of Systems ROS PER ATTENDING Sepsis Event Evaluation Height, Weight, BMI Height: '" Weight: lbs. oz. kg; 103.55 BMI Method:Stated Focused Exam Lactate Level 04/19/21 18:25: Lactic Acid Level 2.02*H 04/19/21 20:15: Lactic Acid Level 2.12*H 04/19/21 23:05: Lactic Acid Level 1.82 Exam Exam Patient acknowledged, consented, and participated in this virtual visit which was conducted using real time audio/video Vital Signs Date Time Temp Pulse Resp B/P (MAP) Pulse Ox O2 Delivery O2 Flow Rate FiO2 04/20/21 09:00 129 24 82/58 96 Room Air 04/20/21 08:23 92 Room Air 04/20/21 08:20 96 Nasal Cannula 2.00 04/20/21 08:00 107 24 88/50 92 Room Air 04/20/21 07:40 36.1 04/20/21 07:00 107 04/20/21 07:00 107 25 93/59 92 Room Air 04/20/21 06:00 104 20 91/54 93 Room Air 04/20/21 05:00 102 20 84/53 94 Room Air 04/20/21 04:11 97 Room Air 04/20/21 04:00 104 22 89/60 96 Room Air 04/20/21 03:03 36.4 Room Air 04/20/21 03:00 101 21 94/62 97 Room Air 04/20/21 02:00 101 19 110/90 97 Room Air 04/20/21 01:00 101 16 92/58 96 Room Air 04/20/21 01:00 101 04/20/21 00:00 101 18 89/43 95 Room Air 04/19/21 23:56 95 Room Air 04/19/21 23:06 36.1 Room Air 04/19/21 23:00 102 19 96/52 98 Room Air 04/19/21 22:00 101 17 84/56 93 Room Air 04/19/21 20:45 98 17 95/53 100 Room Air 04/19/21 20:17 37.0 109 94 04/19/21 20:15 101 17 88/55 94 Room Air 04/19/21 19:45 105 20 87/53 94 Room Air 04/19/21 19:30 94 Room Air 04/19/21 19:30 105 19 103/43 91 Room Air 04/19/21 19:15 104 17 90/56 93 Room Air 04/19/21 19:05 105 04/19/21 19:00 36.0 102 29 85/63 94 Room Air 04/19/21 15:45 37.0 109 20 88/41 (57) 94 Room Air I & O 04/20/21 07:00 Intake Total 2610 ml Output Total 465 ml Balance 2145 ml Height & Weight Height: '" Weight: lbs. oz. kg; 103.55 BMI Method:Stated General Appearance: Anxious, Cachetic Capillary Refill: Greater Than 3 Seconds Peripheral Pulses: 1+ Dorsalis Pedis (R), 1+ Left Dors-Pedis (L) (See free text) Gastrointestinal: abnormal bowel sounds (Hypoactive bowel sounds abdomen firm, diffuse rebound tenderness), distended, guarding, rebound, tenderness Other comments PE PER ATTENDING Results Lab Laboratory Tests 04/19/21 16:20 04/20/21 04:[address] ABD, CXR, AND KUB XRAYS REVIEWED Assessment/Plan Assessment/Plan A video visit made and I assisted the patient with the help of the RN and available electronic medical data and images reviewed. Impression 1. Possible bowel obstruction with dehydration and hypotension. 2. History of COPD but not in any exacerbation at this time 3. History of hypertension currently hypotensive 3. Acute kidney injury due to volume loss. 5. Lactic acidosis is improving. Recommendations 1. We will volume resuscitate with normal saline 2 L IV over 2 hours followed by continue Ringer lactate at 125 cc/h. If her blood pressure does not improve will start on a Levophed. 2. Insert NG tube and deflate the stomach. Continuous suction. 3. Will hold off fleets Phospho-Soda enemas as it can cause further worsening of kidney failure. 4. Awaiting reassessment by the surgeon. 5. We will repeat BMP this afternoon. Critical Care: Critically Ill Patient Time spent with patient (mins): 35 Diagnosis/Problems Diagnosis/Problems (1) ALIVIA (acute kidney injury) Status: Acute (2) Abdominal pain Status: Acute (3) Large bowel obstruction RADHA LAKE MD Apr 20, 2021 09:37
--- NOTE | 2021-04-20 09:40 | Progress Note-Pre Operative ---
Pre-Operative Progress Note H&P Reviewed The H&P was reviewed, patient examined and no changes noted. Date Seen by Provider: Apr 20, 2021 Time Seen by Provider: 09:45 Date H&P Reviewed: Apr 20, 2021 Time H&P Reviewed: 09:45 Pre-Operative Diagnosis: dysphagia RICARDO BAE MD Apr 20, 2021 09:40
[2021-04-20] MEDS: fentaNYL INJ 100 MCG/2 ML AMP IVP PRN ×2 (10:25→13:23)
[2021-04-20] MEDS ORDERED: MAGNESIUM CITRATE 300 ML BTL PO NR (11:00)
[2021-04-20] MEDS: METOCLOPRAMIDE INJ 10 MG/2 ML (REGLAN) IVP SCH ×3 (11:13→23:04)
[2021-04-20] MEDS: PIPERACILLIN/TAZO 4.5 GM/NS 100 ML IV SCH ×4 (11:14→23:04)
[2021-04-20] MEDS: NOREPINEPHRINE 8 MG/250 ML 250 ML IV SCH ×2 (11:16→22:35)
[2021-04-20] MEDS: MAGNESIUM CITRATE 300 ML BTL PO SCH (11:24)
--- NOTE | 2021-04-20 11:42 | Consultation - Hospitalist ---
HPI History of Present Illness: HPI/Chief Complaint Chief complaint: Abdominal pain History of present illness: This is a 60-year-old white female clinic patient of [facility] who presented to the ER with complaints of severe abdominal pain. Suspicion for ischemic bowel so heparin drip was started. Large amount of stool noted on CT scan so NG tube was placed in preparation of performing endoscopies on Thursday but hypotension occurred evidence of significant increase in abdominal pain suspicion for bowel so she was emergently taken to surgery status post resection of partial colon. She requested DNR Source: patient Exam Limitations: clinical condition Date Seen 04/20/21 Attending Physician Tate Cox MD PCP Michael Spivey MD Referring Physician Date of Admission Apr 19, 2021 at 17:02 Home Medications & Allergies Home Medications Reviewed patient Home Medication Reconciliation performed by pharmacy medication reconciliations application support technician and/or nursing. Patients Allergies have been reviewed. Allergies Allergies Coded Allergies No Known Drug Allergies (Unverified12/09/09) Past Suludmh-Jplepv-Oonqqa Hx Patient Social History Marrital Status: single Employed/Student: retired Tobacco Use?: Yes Tobacco type used: Cigarettes Smoking Status: Current Everyday Smoker Use of E-Cig and/or Vaping dev: No Substance use?: No Substance type: Marijuana Alcohol Use?: Yes Alcohol type: Hard Liquor Additional alcohol type: reports 1 or 2 rum or whiskey q couple days Alcohol Frequency: Couple times a week Pt feels they are or have been: No Immunizations Up To Date Date of Influenza Vaccine: Aug 14, 2011 Tetanus Booster (TDap): More Than 5 Years Hepatitis A: No Hepatitis B: Yes Date of Pneumonia Vaccine: Aug 14, 2011 Current Status status: No status: No Advance Directives: No Communicates: Verbally Primary Language: Greek Preferred Spoken Language: Greek Is interpretation needed?: No Sensory deficits: Vision impairment Implanted or Applied Medical D: None Past Medical History Surgeries: Hysterectomy, Orthopedic Currently Using CPAP: No 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 oz. kg; 103.55 BMI Method:Stated General Appearance: Anxious, Cachetic, Severe Distress, Thin Respiratory: Accessory Muscle Use, Crackles, Decreased Breath Sounds Cardiovascular: Tachycardia Gastrointestinal: Abnormal Bowel Sounds, Distended, Rebound, Tenderness Neurologic/Psychiatric: Alert, Oriented x3 Results Results/Procedures Labs Laboratory Tests 04/19/21 16:20 04/20/21 04:12 04/20/21 12:22 04/20/21 20:36 04/21/21 03:37 Patient resulted labs reviewed. Assessment/Plan Assessment and Plan Assess & Plan/Chief Complaint Assessment: Acute abdominal pain which progressed in severity and taken emergently to surgery Hypotension placed on IV fluids and pressor therapy Smoker Coarse breath sounds Plan: Emergent surgery required Supportive care DNR as patient requested Critical Care Critically Ill Patient TIFFANIE KRAMER DO Apr 20, 2021 11:42
[2021-04-20 12:46] LABS: CREATININE SERUM 2.11 MG/DL (0.60-1.30)
[2021-04-20] MEDS: NS IV 500 ML 500 ML IV SCH (12:51)
--- NOTE | 2021-04-20 12:56 | Diagnostic Imaging Report ---
CHEST 1 VIEW, AP/PA ONLY Indication: Intubation, shortness of air Comparison: 04/19/2021 Findings: The enteric tube coils upon itself twice, initially in the distal esophagus and then again in the proximal esophagus. The tip is somewhere in the region of the midesophagus. Hiatal hernia is present. No pleural effusion or pneumothorax. Stable cardiac silhouette. Stable right IJ central venous catheter. Impression: 1. Enteric tube is not passed through the hiatal hernia and coils upon itself multiple times in the esophagus. 2. No acute cardiopulmonary process. Dictated by: Dictated on workstation # [id number]
[2021-04-20] MEDS ORDERED: LIDOCAINE 1% INJ 20 ML 20 ML VIAL ONE (13:04)
--- NOTE | 2021-04-20 14:14 | Anesthesia-Procedure Note ---
Procedures/Interventions Procedure Start/Stop/Diagnosis Date of Procedure: Apr 20, 2021 Start Time: 12:55 Brief History Arrived to ICU, pt awake and oriented. In respiratory distress, wearing nonrebreather mask. Tachypnic, and labored breathing. Hypotensive with vasopressors infusing. Upper extremities cool to touch, with poor cap refill, and dusky fingers. Attemped bilateral radial arterial lines unsuccesfully. Artery accessed numerous times, but unable to thread wire or catheter. Pt tolerated fairly well with minimal complaint. Chloraprep used to cleanse skin, and Lido 1% plain used to localize with 25g needle. Ultrasound used to identify artery with no additional success. Pt DNR/DNI Stop Time: 13:55 Arterial Line Arterial Line Catheter: 20G (attempted on right ) Type: Radial Location: Left, Right Procedure: patient tolerated procedure well, no immediate complications, post procedure area cleaned ALFIE FISHMAN CRNA Apr 20, 2021 14:14
[2021-04-20] MEDS ORDERED: ALBUMIN 25% 25 GM/100 ML 100 ML IV SCH (14:15)
--- NOTE | 2021-04-20 14:25 | Tele-ICU Progress Note ---
Progress Note RN called with hypotension refractory to fluid bolus and levophed. lactic acid increasing.pt developping hyperkalemis. clinically suspicious for ischemic bowel. abg and art line could not be done. will get vbg and change ringer lactate to ns b/o hyperkalemia. Also will give iv albumin 25% 100gm. if no response and vbg shows metabolic acidosis will talk to the surgeon. mean while get kub x-ray again. Focused Exam Lactate Level 04/19/21 20:15: Lactic Acid Level 2.12*H 04/19/21 23:05: Lactic Acid Level 1.82 04/20/21 12:22: Lactic Acid Level 2.72*H Height, Weight, BMI Height: '" Weight: lbs. oz. kg; 103.55 BMI Method:Stated Lactic Acid Level Laboratory Tests Test 04/20/21 12:22 Lactic Acid Level 2.72 MMOL/L (0.50-2.00) *H RADHA LAKE MD Apr 20, 2021 14:25
[2021-04-20] MEDS: RT-ALBUTEROL/IPRATROPIUM 3 ML (DUONEB) VIAL INH SCH ×2 (14:27→21:38)
[2021-04-20 14:52] LABS: ABG OXYGEN SATURATION 97 % (94-100); ABG PCO2 56 MMHG (35-45); ABG PH 7.04 (7.37-7.43); ABG PO2 139 MMHG (79-93); ABG TCO2 16.8 MMOL/L (21.0-31.0)
[2021-04-20 14:53] LABS: PATIENT TEMP 35.7
[2021-04-20] MEDS ORDERED: SODIUM BICARB 8.4% 50 MEQ/50 ML VIAL IV SCH (15:00)
[2021-04-20] MEDS ORDERED: SODIUM BICARB 8.4% 50 MEQ/50 ML VIAL IV ONE (15:00)
[2021-04-20] MEDS ORDERED: SODIUM BICARB 8.4% 50 MEQ/50 ML (ABBOTT) SYR IV ONE (15:00)
--- NOTE | 2021-04-20 15:04 | Diagnostic Imaging Report ---
REASON FOR EXAM: Evaluate small bowel obstruction. Abdominal distention. COMPARISON: 04/19/2021. TECHNIQUE: 2 views of the abdomen. FINDINGS: Persistent large burden of stool is seen throughout the colon. No evidence of bowel obstruction. No free intraperitoneal air. IMPRESSION: Persistent large burden of stool in the colon consistent with constipation. Dictated by: Dictated on workstation # [id number]
--- NOTE | 2021-04-20 15:13 | Tele-ICU Progress Note ---
Progress Note VENOUS BLOOD GAS REVEALED SEVERE METOBOLIC ACIDOSIS SUGGESTIVE THAT SHE MAY HAVE ISCHEMIC BOWEL. SODIUM BICARBONATE DRIP AND PUSH ORDERED. D/W DR. BAE ABOUT MY CONCERNS AND HE IS GOING TO RE EVALUATE THE PT. WILL REPEAT ANOTHER VBG IN 2-3 HOURS. KUB XRAY PENDING. Focused Exam Lactate Level 04/19/21 23:05: Lactic Acid Level 1.82 04/20/21 12:22: Lactic Acid Level 2.72*H 04/20/21 14:30: Height, Weight, BMI Height: '" Weight: lbs. oz. kg; 103.55 BMI Method:Stated Lactic Acid Level Laboratory Tests Test 04/20/21 12:22 04/20/21 14:30 Lactic Acid Level 2.72 MMOL/L (0.50-2.00) *H RADHA LAKE MD Apr 20, 2021 15:13
[2021-04-20] MEDS ORDERED: SODIUM BICARB 8.4% 50 MEQ/50 ML (ABBOTT) SYR ONE (15:17)
[2021-04-20] MEDS: SODIUM BICARBONATE 8.4% VIAL 150 MEQ in D5W 1000 ML IV SOLUTION 1,000 ML IV SCH (15:37)
--- NOTE | 2021-04-20 15:54 | Progress Note-Pre Operative ---
Pre-Operative Progress Note H&P Reviewed The H&P was reviewed, patient examined and no changes noted. Date Seen by Provider: Apr 20, 2021 Time Seen by Provider: 15:00 Date H&P Reviewed: Apr 20, 2021 Time H&P Reviewed: 15:00 Pre-Operative Diagnosis: sepsis, severe abd pain, r/o mesenteric ischemia RICARDO BAE MD Apr 20, 2021 15:54
[2021-04-20] MEDS ORDERED: MIDAZOLAM 2 MG/2 ML (VERSED) VIAL ONE (15:58)
[2021-04-20] MEDS ORDERED: SUCCINYLCHOLINE INJ 100 MG/5 ML SYR/VIAL ONE (15:58)
[2021-04-20] MEDS ORDERED: KETAMINE SYRINGE 50 MG/5 ML SYRINGE ONE (15:58)
[2021-04-20] MEDS ORDERED: LIDOCAINE/EPI 1%-1:100,000 (XYLOCAINE) 20ML ONE (16:00)
[2021-04-20] MEDS ORDERED: LACTATED RINGERS 1,000 ML IV PRN (16:15)
[2021-04-20] MEDS ORDERED: ceFAZolin INJECTION 1,000 MG ONE (16:45)
[2021-04-20] MEDS ORDERED: metroNIDAZOLE 500MG/100ML IVPB 100 ML ONE (16:45)
[2021-04-20] MEDS ORDERED: ceFAZolin INJECTION 1,000 MG VIAL IV ONE (17:00)
[2021-04-20] MEDS ORDERED: metroNIDAZOLE 500MG/100ML IVPB 100 ML IV ONE (17:00)
[2021-04-20 17:25] LABS: ABG BASE EXCESS -9.1 MMOL/L (-2.5-2.5); ABG OXYGEN SATURATION 97 % (94-100); ABG PO2 114 MMHG (79-93); ABG TCO2 21.9 MMOL/L (21.0-31.0)
[2021-04-20 17:27] LABS: ABG PCO2 72 MMHG (35-45)
[2021-04-20 17:28] LABS: ABG PH 7.07 (7.37-7.43); INSPIRED O2 10%; VENTILATOR YES
[2021-04-20] MEDS ORDERED: PHENYLEPHRINE INJ 10 MG/ML (FOR DRIP KITS ONLY) ONE (17:30)
[2021-04-20] MEDS ORDERED: PHENYLEPHRINE 100 MCG/ML 10 ML (ANESTHESIA) SYR ONE ×2 (17:30→17:33)
[2021-04-20] MEDS ORDERED: NS (IVPB) 100 ML ONE (17:31)
[2021-04-20] MEDS ORDERED: VASOPRESSIN INJECTION 20 UNIT/ML VIAL ONE ×2 (17:45→18:17)
[2021-04-20] MEDS ORDERED: ROCURONIUM 10 MG/ML 5 ML SYRINGE IV ONE (18:16)
[2021-04-20] MEDS ORDERED: SODIUM BICARB 8.4% 50 MEQ/50 ML VIAL ONE (18:17)
--- NOTE | 2021-04-20 18:19 | Progress Note-Post Operative ---
Post-Operative Progess Note Surgeon (s)/Airline Pilot/First Officer (s) Surgeon RICARDO BAE MD Airline Pilot/First Officer: oneyda phoenix BUFFET WAITER/WAITRESS Pre-Operative Diagnosis sepsis, severe abd pain, r/o mesenteric ischemia Post-Operative Diagnosis ischemic proximal transverse colon to rectosigmoid. Procedure & Operative Findings Date of Procedure 04/20/21 Procedure Performed/Findings exploratory laparotomy. extended left hemicolectomy and law anterior resection. Anesthesia Type get Estimated Blood Loss Estimated blood loss (mL): minimal Specimens/Packing Specimens Removed left colon and rectum RICARDO BAE MD Apr 20, 2021 18:19
[2021-04-20] MEDS ORDERED: PHENYLEPHRINE INJECTION 10 MG in NS (IVPB) 250 ML IV SCH (18:45)
[2021-04-20] MEDS ORDERED: PROPOFOL DRIP (ICU) 100 ML IV ONE (18:47)
[2021-04-20] MEDS: PROPOFOL DRIP (ICU) 100 ML IV SCH (18:51)
[2021-04-20] MEDS ORDERED: PANTOPRAZOLE 40 MG (PROTONIX) VIAL ONE (19:00)
[2021-04-20] MEDS: PANTOPRAZOLE 40 MG (PROTONIX) VIAL IV SCH (19:01)
[2021-04-20] MEDS ORDERED: SEVOFLURANE (ULTANE) 15 ML INHAL SOLN ONE ×2 (19:07→19:08)
--- NOTE | 2021-04-20 19:35 | Diagnostic Imaging Report ---
INDICATION: Intubation. TECHNIQUE: Single view chest, 7:13 PM. CORRELATION STUDY: 04/20/2021. FINDINGS: Endotracheal tube is present with tip interposed between the clavicles. Gastric tube passes below the left hemidiaphragm and below the edge of the film imaged. Right IJ central line tip over the SVC. Heart size and mediastinum are relatively stable. Increasing opacities in the left lung base likely a combination of effusion along with infiltrate. Minimal right infrahilar infiltrate or atelectasis. IMPRESSION: 1. Endotracheal tube superimposed over the trachea at the level of the clavicles. Gastric tube has been repositioned, tip now into the stomach. 2. Increasing opacity at the left lung base likely a combination of infiltrate and/or atelectasis along with effusion. Also with atelectasis or infiltrate in the right infrahilar region. Dictated by: Dictated on workstation # [id number]
[2021-04-20 20:50] LABS: BASOPHILS % (AUTO) 0 % (0-10); EOSINOPHILS % (AUTO) 0 % (0-10); HEMATOCRIT 24 % (35-52); HEMOGLOBIN 7.2 g/dL (11.5-16.0); LYMPHOCYTES # (AUTO) 0.2 10^3/uL (1.0-4.0); LYMPHOCYTES % (AUTO) 12 % (12-44); MEAN CORPUSCULAR HEMOGLOBIN 25 pg (25-34); MEAN CORPUSCULAR HGB CONC 31 g/dL (32-36); MEAN CORPUSCULAR VOLUME 83 fL (80-99); MEAN PLATELET VOLUME 11.7 fL (9.0-12.2); MONOCYTES # (AUTO) 0.1 10^3/uL (0.0-1.0); MONOCYTES % (AUTO) 8 % (0-12); NEUTROPHILS # (AUTO) 1.4 10^3/uL (1.8-7.8); NEUTROPHILS % (AUTO) 79 % (42-75); PLATELET COUNT 165 10^3/uL (130-400); WHITE BLOOD COUNT 1.8 10^3/uL (4.3-11.0)
[2021-04-20 21:10] LABS: CALCIUM 6.1 MG/DL (8.5-10.1); CREATININE SERUM 2.29 MG/DL (0.60-1.30); POTASSIUM 4.4 MMOL/L (3.6-5.0)
--- NOTE | 2021-04-20 22:14 | OPERATIVE REPORT ---
DATE OF SERVICE: 04/20/2021 ATTENDING PRIMARY CARE PHYSICIAN: Dr. Michael Spivey. PREOPERATIVE DIAGNOSIS: Peritonitis. POSTOPERATIVE DIAGNOSES: Ischemic colon starting at the proximal transverse and extending to the sigmoid colon. There was also a contained perforation at the rectosigmoid region. PROCEDURE: Exploratory laparotomy, extended left hemicolectomy and low anterior colorectal resection, Adkins's, and end colostomy. SURGEON: Ricardo Cox MD. PROCESS AUTOMATION ENGINEER: Edgard Ayala APRN. ANESTHESIA: General endotracheal. ESTIMATED BLOOD LOSS: Minimal. FINDINGS: Ischemic colon starting at the proximal transverse and extending to the sigmoid colon. There was also a contained perforation at the rectosigmoid region. DISPOSITION: The patient tolerated the procedure well. INDICATIONS: The patient is a 60-year-old female, who presented to [facility] Emergency Department with complaints of abdominal pain starting around midnight. She also had reported some nausea; however, no vomiting. She also reports that she has not had a bowel movement in several days. During this timeframe, she also reports anorexia. She does not report any previous history of any abdominal surgeries. A CT scan was performed, which did show a large volume of stool throughout the colon without evidence of colitis or diverticulitis. There was also a short segment of luminal narrowing in the mid upper rectum as well. The patient was monitored in ICU and continued to have elevation of lactic acid as well as increasing vasopressor requirements to maintain mean arterial pressure. The patient's abdominal pain also worsened and on examination, she was found to have peritonitis. DESCRIPTION OF PROCEDURE: The patient was brought to the operating room, laid supine on the table. After adequate IV pain and sedative medications and general endotracheal intubation, the abdomen was prepped and draped in standard surgical fashion. A 15 blade was then used to make a midline laparotomy incision and the subcutaneous tissue was dissected down using electrocautery. The fascia was then opened and the muscle layer . The peritoneal lining was then retracted anteriorly and opened with Metzenbaum scissors. We then proceeded to open up the fascia and peritoneal lining to the length of the skin incision under direct visualization using electrocautery. Immediately necrotic bowel was identified. This encompassed the proximal transverse colon and extended into the rectosigmoid junction. The narrowing was at the rectosigmoid junction, which was a contained perforation. We then proceeded with an extended the left hemicolectomy as well as a low anterior colorectal resection. The mesenteric lining was then opened using electrocautery and then transected and cauterized using the Sonicision. The left white lines of Toldt were then taken down using Sonicision until the area of the stricture was identified, which was a contained perforation. We dissected around this area of the rectosigmoid junction using electrocautery and once this was freed, a green load TA stapler was used to staple and transect the rectum and creation of Adkins's pouch. The proximal transverse colon was then resected with a SUKI 75mm stapler with a blue load. Good hemostasis was observed and the specimen was sent to pathology. We then proceeded to place an end colostomy in the left upper quadrant and a skin incision was made using cautery on the cut setting. The subcutaneous tissue as well as a muscle layers and fascia were then opened under direct visualization using electrocautery. The fascia was then closed using two #1 looped PDS suture starting superiorly and inferiorly and tied in the middle. The skin was then closed loosely with skin roman. We then proceeded with maturation of the end colostomy. The staple line was excised using electrocautery on the cut setting. The mucosa was then imbricated using 3-0 silk interrupted sutures. The colostomy bag was then placed onto the end colostomy. Island dressing was placed on to the midline incision. The patient tolerated the procedure well. The patient remains critical and will be readmitted back to the ICU and was continued on vasopressors as well as ventilator and we will have E-ICU continue with management. Job ID: [id number] DocumentID: [id number] Dictated Date: 04/20/2021 18:29:00 Kiln Drawer Date: 04/20/2021 22:13:35 Dictated By: RICARDO COX MD [facility]
[2021-04-21] VITALS (10 sets, daily range): BP systolic 91–121; BP diastolic 55–100
[2021-04-21 00:37] LABS: ABG BASE EXCESS -4.2 MMOL/L (-2.5-2.5); ABG OXYGEN SATURATION 95 % (94-100); ABG PCO2 55 MMHG (35-45); ABG PO2 88 MMHG (79-93); ABG TCO2 23.7 MMOL/L (21.0-31.0)
[2021-04-21 00:38] LABS: ALLENS TEST YES-POS; INSPIRED O2 90%; PATIENT TEMP 37.5; VENTILATOR YES
[2021-04-21 00:39] LABS: ABG PH 7.23 (7.37-7.43)
[2021-04-21] MEDS: NS IV 1000 ML 1,000 ML IV SCH ×2 (00:54→09:58)
[2021-04-21] MEDS: NOREPINEPHRINE 8 MG/250 ML 250 ML IV SCH (01:29)
[2021-04-21] MEDS: SODIUM BICARBONATE 8.4% VIAL 150 MEQ in D5W 1000 ML IV SOLUTION 1,000 ML IV SCH ×2 (02:13→13:36)
[2021-04-21] MEDS: RT-ALBUTEROL/IPRATROPIUM 3 ML (DUONEB) VIAL INH SCH ×3 (02:30→15:14)
[2021-04-21] MEDS ORDERED: LACTATED RINGERS 1,000 ML IV ONE (03:42)
[2021-04-21] MEDS ORDERED: NS (IVPB) 250 ML ONE ×5 (03:43→06:38)
[2021-04-21] MEDS ORDERED: PHENYLEPHRINE INJ 10 MG/ML (FOR DRIP KITS ONLY) ONE ×5 (03:43→06:38)
[2021-04-21 03:47] LABS: BASOPHILS % (AUTO) 0 % (0-10); EOSINOPHILS % (AUTO) 0 % (0-10); HEMATOCRIT 25 % (35-52); HEMOGLOBIN 7.7 g/dL (11.5-16.0); LYMPHOCYTES # (AUTO) 0.3 10^3/uL (1.0-4.0); LYMPHOCYTES % (AUTO) 8 % (12-44); MEAN CORPUSCULAR HEMOGLOBIN 25 pg (25-34); MEAN CORPUSCULAR HGB CONC 31 g/dL (32-36); MEAN CORPUSCULAR VOLUME 81 fL (80-99); MEAN PLATELET VOLUME 12.4 fL (9.0-12.2); MONOCYTES # (AUTO) 0.3 10^3/uL (0.0-1.0); MONOCYTES % (AUTO) 7 % (0-12); NEUTROPHILS # (AUTO) 3.5 10^3/uL (1.8-7.8); NEUTROPHILS % (AUTO) 85 % (42-75); PLATELET COUNT 215 10^3/uL (130-400); WHITE BLOOD COUNT 4.1 10^3/uL (4.3-11.0)
[2021-04-21] MEDS: PHENYLEPHRINE INJECTION 10 MG in NS (IVPB) 250 ML IV SCH ×5 (03:51→07:23)
[2021-04-21] MEDS: LACTATED RINGERS 1,000 ML IV SCH ×2 (03:52→14:24)
[2021-04-21] MEDS ORDERED: LACTATED RINGERS 1,000 ML IV SCH (04:00)
[2021-04-21] MEDS ORDERED: NS (IVPB) 100 ML ONE (04:01)
[2021-04-21] MEDS ORDERED: VASOPRESSIN INJECTION 20 UNIT/ML VIAL ONE (04:02)
[2021-04-21 04:10] LABS: ALBUMIN 2.1 GM/DL (3.2-4.5); BILIRUBIN,TOTAL 0.5 MG/DL (0.1-1.0); CREATININE SERUM 2.7 MG/DL (0.60-1.30); MAGNESIUM 2.8 MG/DL (1.6-2.4); PHOSPHORUS 6.1 MG/DL (2.3-4.7); POTASSIUM 4.9 MMOL/L (3.6-5.0); TOTAL PROTEIN 4.2 GM/DL (6.4-8.2)
[2021-04-21] MEDS: VASOPRESSIN INJECTION 20 UNIT in NS (IVPB) 100 ML IV SCH ×2 (04:11→12:34)
[2021-04-21 04:14] LABS: ABG BASE EXCESS -5.1 MMOL/L (-2.5-2.5); ABG OXYGEN SATURATION 93 % (94-100); ABG PCO2 52 MMHG (35-45); ABG PO2 83 MMHG (79-93); ABG TCO2 22.6 MMOL/L (21.0-31.0)
[2021-04-21 04:15] LABS: ALLENS TEST YES-POS
[2021-04-21 04:16] LABS: INSPIRED O2 80%; PATIENT TEMP 37.5; VENTILATOR YES
[2021-04-21 04:17] LABS: CALCIUM 5.9 MG/DL (8.5-10.1)
[2021-04-21 04:17] LABS: ABG PH 7.24 (7.37-7.43)
[2021-04-21] MEDS ORDERED: NS IV 500 ML 500 ML IV SCH (04:30)
[2021-04-21] MEDS: PROPOFOL DRIP (ICU) 100 ML IV SCH ×2 (04:35→14:12)
[2021-04-21] MEDS: fentaNYL INJ 100 MCG/2 ML AMP IVP PRN ×3 (05:25→11:53)
--- NOTE | 2021-04-21 05:54 | Tele-ICU Progress Note ---
Subjective Date Seen by a Provider: Apr 21, 2021 Time Seen by a Provider: 05:52 Sepsis Event Evaluation Height, Weight, BMI Height: '" Weight: lbs. oz. kg; 103.55 BMI Method:Stated Focused Exam Lactate Level 04/20/21 20:36: Lactic Acid Level 4.77*H 04/20/21 23:10: Lactic Acid Level 4.27*H 04/21/21 03:37: Lactic Acid Level 4.56*H Lactic Acid Level Laboratory Tests Test 04/21/21 03:37 Lactic Acid Level 4.56 MMOL/L (0.50-2.00) *H Exam Exam Patient acknowledged, consented, and participated in this virtual visit which was conducted using real time audio/video Vital Signs Date Time Temp Pulse Resp B/P (MAP) Pulse Ox O2 Delivery O2 Flow Rate FiO2 04/21/21 05:49 37.2 105 20 112/59 90 Mechanical Ventilator 60 04/21/21 05:39 60 04/21/21 05:26 37.2 108 20 111/55 93 Mechanical Ventilator 60 04/21/21 05:10 106 19 97/55 100 Mechanical Ventilator 60.00 04/21/21 05:05 106 19 107/53 92 Mechanical Ventilator 60.00 04/21/21 05:00 107 20 116/59 97 Mechanical Ventilator 60.00 04/21/21 04:55 107 20 99/51 88 Mechanical Ventilator 60.00 04/21/21 04:50 106 97/57 Mechanical Ventilator 60.00 04/21/21 04:45 107 19 89/61 99 Mechanical Ventilator 60.00 04/21/21 04:40 107 88/51 Mechanical Ventilator 60.00 04/21/21 04:36 108 81/51 04/21/21 04:35 109 20 81/51 96 Mechanical Ventilator 60.00 04/21/21 04:30 109 20 85/47 100 Mechanical Ventilator 60.00 04/21/21 04:25 112 19 81/47 100 Mechanical Ventilator 60.00 04/21/21 04:20 113 19 74/45 100 Mechanical Ventilator 60.00 04/21/21 04:15 113 19 73/45 100 Mechanical Ventilator 60.00 04/21/21 04:13 Mechanical Ventilator 60.00 04/21/21 04:11 114 70/40 04/21/21 04:10 115 70/40 Mechanical Ventilator 70.00 04/21/21 04:09 Mechanical Ventilator 70.00 04/21/21 04:05 114 20 67/38 100 04/21/21 04:00 115 20 59/44 100 Mechanical Ventilator 80.00 04/21/21 04:00 Mechanical Ventilator 60 04/21/21 03:54 190 67/53 04/21/21 03:45 179 19 67/53 95 Mechanical Ventilator 80.00 04/21/21 03:41 37.5 04/21/21 03:40 36.6 04/21/21 03:30 Mechanical Ventilator 70.00 04/21/21 03:30 184 11 68/50 95 Mechanical Ventilator 80.00 04/21/21 03:15 122 20 91/56 96 Mechanical Ventilator 80.00 04/21/21 03:00 122 20 96/55 94 Mechanical Ventilator 80.00 04/21/21 02:45 137 20 97/53 90 Mechanical Ventilator 80.00 04/21/21 02:30 121 19 92/55 96 Mechanical Ventilator 80.00 04/21/21 02:30 121 20 100 80 04/21/21 02:15 122 20 93/53 95 Mechanical Ventilator 80.00 04/21/21 02:00 121 19 89/50 97 Mechanical Ventilator 80.00 04/21/21 01:59 Mechanical Ventilator 80.00 04/21/21 01:47 90 04/21/21 01:45 121 20 92/51 98 Mechanical Ventilator 90.00 04/21/21 01:30 94/55 Mechanical Ventilator 90.00 04/21/21 01:29 122 92/56 04/21/21 01:15 118 20 92/50 99 Mechanical Ventilator 90.00 04/21/21 01:00 118 22 88/51 97 Mechanical Ventilator 90.00 04/21/21 01:00 117 04/21/21 00:54 116 87/52 04/21/21 00:45 86 20 109/62 93 Mechanical Ventilator 90.00 04/21/21 00:30 87 20 110/61 93 Mechanical Ventilator 90.00 04/21/21 00:18 115 84/50 04/21/21 00:15 86 20 112/61 93 Mechanical Ventilator 90.00 04/21/21 00:00 116 20 86/47 100 Mechanical Ventilator 90.00 04/21/21 00:00 Mechanical Ventilator 90 04/20/21 23:56 116 85/48 04/20/21 23:01 37.5 04/20/21 23:00 114 19 89/49 100 Mechanical Ventilator 90.00 04/20/21 22:45 112 19 87/48 100 Mechanical Ventilator 90.00 04/20/21 22:35 112 85/47 04/20/21 22:30 111 20 85/47 100 Mechanical Ventilator 90.00 04/20/21 22:20 113 87/49 04/20/21 22:15 111 20 87/49 100 Mechanical Ventilator 90.00 04/20/21 22:00 110 20 89/48 98 Mechanical Ventilator 90.00 04/20/21 21:47 90 04/20/21 21:45 107 19 91/43 98 04/20/21 21:45 107 19 91/43 98 Mechanical Ventilator 90.00 04/20/21 21:45 Mechanical Ventilator 90.00 04/20/21 21:38 109 20 99 100 04/20/21 21:30 108 20 85/48 96 Mechanical Ventilator 90.00 04/20/21 21:25 86/49 04/20/21 21:15 108 20 86/49 96 Mechanical Ventilator 90.00 04/20/21 21:00 107 19 89/47 97 Mechanical Ventilator 90.00 04/20/21 20:45 109 19 87/47 97 Mechanical Ventilator 90.00 04/20/21 20:40 108 20 91/53 95 Mechanical Ventilator 90.00 04/20/21 20:40 91/53 04/20/21 20:30 109 19 90/53 95 Mechanical Ventilator 90.00 04/20/21 20:20 108 20 93/43 95 Mechanical Ventilator 90.00 04/20/21 20:15 106 20 95 Mechanical Ventilator 90.00 04/20/21 20:10 108 19 92/45 93 Mechanical Ventilator 90.00 04/20/21 20:10 92/45 04/20/21 20:00 126 20 103/56 95 Mechanical Ventilator 90.00 04/20/21 20:00 36.3 04/20/21 20:00 Mechanical Ventilator 100 04/20/21 19:50 107 20 101/53 94 Mechanical Ventilator 90.00 04/20/21 19:45 107 20 101/53 94 Mechanical Ventilator 90.00 04/20/21 19:40 106 19 106/43 92 Mechanical Ventilator 90.00 04/20/21 19:40 Mechanical Ventilator 04/20/21 19:40 36.9 16 106/43 (64) 92 Mechanical Ventilator 04/20/21 19:40 100 04/20/21 19:35 103 20 90 100 04/20/21 19:35 106 20 100/50 89 Mechanical Ventilator 90.00 04/20/21 19:30 105 19 87/43 Mechanical Ventilator 90.00 04/20/21 19:30 16 100/50 (67) 94 Mechanical Ventilator 04/20/21 19:30 Mechanical Ventilator 04/20/21 19:20 105 19 101/58 83 Mechanical Ventilator 90.00 04/20/21 19:20 16 101/58 (72) 94 Mechanical Ventilator 04/20/21 19:15 105 19 83 Mechanical Ventilator 90.00 04/20/21 19:15 Mechanical Ventilator 04/20/21 19:12 105 20 106/56 Mechanical Ventilator 90.00 04/20/21 19:10 16 106/56 (73) 93 Mechanical Ventilator 04/20/21 19:00 130 04/20/21 19:00 Mechanical Ventilator 04/20/21 19:00 16 117/63 (81) 94 Mechanical Ventilator 04/20/21 19:00 130 40 117/63 87 Mechanical Ventilator 90.00 04/20/21 18:51 100 104/56 04/20/21 18:50 16 120/68 (85) 92 Mechanical Ventilator 04/20/21 18:49 Mechanical Ventilator 100.00 04/20/21 18:47 Mechanical Ventilator 04/20/21 18:47 36.8 16 128/71 (90) 92 Mechanical Ventilator 04/20/21 16:00 114 26 100 Nasal Cannula 6.00 04/20/21 15:52 92 Nasal Cannula 6.00 04/20/21 15:34 36.2 04/20/21 15:30 131 23 86/43 100 04/20/21 15:15 126 32 100 04/20/21 15:00 124 Room Air 04/20/21 14:45 125 04/20/21 14:36 Non Rebreather 15.00 04/20/21 14:30 126 26 04/20/21 14:15 126 26 88 04/20/21 14:00 126 27 83 04/20/21 14:00 125 30 Room Air 04/20/21 13:45 124 31 84 04/20/21 13:33 121 27 115/53 79 04/20/21 13:30 120 27 90 04/20/21 13:15 122 26 93 04/20/21 13:00 122 28 88/56 82 04/20/21 13:00 122 28 88/56 88 Room Air 04/20/21 12:50 124 04/20/21 12:45 123 23 72/54 88 04/20/21 12:30 123 81/64 04/20/21 12:15 124 24 89 04/20/21 12:00 101 26 114/90 89 Room Air 04/20/21 11:55 92 Nasal Cannula 2.00 04/20/21 11:47 95 04/20/21 11:45 104 28 114/89 94 04/20/21 11:39 35.7 04/20/21 11:37 95 Nasal Cannula 2.00 04/20/21 11:30 121 19 97/66 90 04/20/21 11:16 110 94/46 04/20/21 11:15 111 28 94/46 97 04/20/21 11:00 110 27 97/66 100 Room Air 04/20/21 10:00 105 26 93/60 95 Room Air 04/20/21 09:00 129 24 82/58 96 Room Air 04/20/21 08:23 92 Room Air 04/20/21 08:20 96 Nasal Cannula 2.00 04/20/21 08:00 107 24 88/50 92 Room Air 04/20/21 07:40 36.1 04/20/21 07:00 107 04/20/21 07:00 107 25 93/59 92 Room Air 04/20/21 06:00 104 20 91/54 93 Room Air I & O 04/21/21 07:00 Intake Total 3200 ml Output Total 1360 ml Balance 1840 ml Height & Weight Height: '" Weight: lbs. oz. kg; 103.55 BMI Method:Stated General Appearance: Anxious, Chronically ill, Cachetic Capillary Refill: Greater Than 3 Seconds Peripheral Pulses: 1+ Dorsalis Pedis (R), 1+ Left Dors-Pedis (L) (See free text) Gastrointestinal: abnormal bowel sounds (Hypoactive bowel sounds abdomen firm, diffuse rebound tenderness), distended, guarding, rebound, tenderness Results Lab Laboratory Tests 04/19/21 16:20 04/20/21 04:12 04/20/21 12:22 04/20/21 20:36 04/21/21 03:37 Assessment/Plan Assessment/Plan Pt went in A fib wit rvr and low BP- very probable the culprit is the hypotension. We will give 1l 0.9ns bolus/ switch to neosynephrine. All labs to be repeated. Despite fluid and change of pressors, pt is stil in a fib with rvr- we will attempt cardioversion in the setting of hemodynamic instability; pt was cardioverted with 100J - converted to SR wit HR 104-115. Vasopressin to be added if needed. labs were evaluated; -hb 7.7- 2 u prbc to be given -lactic acid is getting worse due to hypotension -may need repeat ct abd ro bleed Interventions JOAQUIN GENTILE MD Apr 21, 2021 05:54
[2021-04-21] MEDS: METOCLOPRAMIDE INJ 10 MG/2 ML (REGLAN) IVP SCH ×2 (06:16→11:39)
[2021-04-21] MEDS: PANTOPRAZOLE 40 MG (PROTONIX) VIAL IV SCH (08:06)
[2021-04-21] MEDS: PHENYLEPHRINE INJECTION 40 MG in NS (IVPB) 250 ML IV SCH ×2 (08:28→13:15)
--- NOTE | 2021-04-21 09:11 | Progress Note ---
Subjective Date Seen by a Provider: Apr 21, 2021 Time Seen by a Provider: 09:00 Subjective/Events-last exam on vent/sedated. remains very critical with multi-system organ failure. Focused Exam Lactate Level 04/20/21 20:36: Lactic Acid Level 4.77*H 04/20/21 23:10: Lactic Acid Level 4.27*H 04/21/21 03:37: Lactic Acid Level 4.56*H Objective Exam Vital Signs Date Time Temp Pulse Resp B/P (MAP) Pulse Ox O2 Delivery O2 Flow Rate FiO2 04/21/21 08:28 104 114/56 04/21/21 08:10 37.1 104 114/56 Mechanical Ventilator 100 04/21/21 08:00 107 23 117/77 84 Mechanical Ventilator 100.00 04/21/21 07:55 37.2 04/21/21 07:51 37.6 106 19 112/76 87 Mechanical Ventilator 100 04/21/21 07:45 106 20 112/76 86 04/21/21 07:40 Mechanical Ventilator 100.00 04/21/21 07:30 107 23 85/56 83 04/21/21 07:23 105 110/64 04/21/21 07:15 105 26 110/64 98 04/21/21 07:12 105 22 98 60 04/21/21 07:00 105 19 111/62 97 Mechanical Ventilator 60.00 04/21/21 07:00 105 04/21/21 06:45 104 20 100/61 93 04/21/21 06:41 105 112/69 04/21/21 06:30 105 21 117/59 95 04/21/21 06:18 108 111/66 04/21/21 06:15 105 20 104/61 93 04/21/21 06:14 105 111/66 04/21/21 06:00 105 19 111/66 95 Mechanical Ventilator 60.00 04/21/21 05:49 37.2 105 20 112/59 90 Mechanical Ventilator 60 04/21/21 05:45 105 20 112/59 93 Mechanical Ventilator 60.00 04/21/21 05:39 60 04/21/21 05:30 105 19 114/59 96 Mechanical Ventilator 60.00 04/21/21 05:26 37.2 108 20 111/55 93 Mechanical Ventilator 60 04/21/21 05:15 107 20 121/67 96 Mechanical Ventilator 60.00 04/21/21 05:10 106 19 97/55 100 Mechanical Ventilator 60.00 04/21/21 05:05 106 19 107/53 92 Mechanical Ventilator 60.00 04/21/21 05:00 107 20 116/59 97 Mechanical Ventilator 60.00 04/21/21 04:55 107 20 99/51 88 Mechanical Ventilator 60.00 04/21/21 04:50 106 97/57 Mechanical Ventilator 60.00 04/21/21 04:45 107 19 89/61 99 Mechanical Ventilator 60.00 04/21/21 04:40 107 88/51 Mechanical Ventilator 60.00 04/21/21 04:36 108 81/51 04/21/21 04:35 109 20 81/51 96 Mechanical Ventilator 60.00 04/21/21 04:30 109 20 85/47 100 Mechanical Ventilator 60.00 04/21/21 04:25 112 19 81/47 100 Mechanical Ventilator 60.00 04/21/21 04:20 113 19 74/45 100 Mechanical Ventilator 60.00 04/21/21 04:15 113 19 73/45 100 Mechanical Ventilator 60.00 04/21/21 04:13 Mechanical Ventilator 60.00 04/21/21 04:11 114 70/40 04/21/21 04:10 115 70/40 Mechanical Ventilator 70.00 04/21/21 04:09 Mechanical Ventilator 70.00 04/21/21 04:05 114 20 67/38 100 04/21/21 04:00 115 20 59/44 100 Mechanical Ventilator 80.00 04/21/21 04:00 Mechanical Ventilator 60 04/21/21 03:54 190 67/53 04/21/21 03:45 179 19 67/53 95 Mechanical Ventilator 80.00 04/21/21 03:41 37.5 04/21/21 03:40 36.6 04/21/21 03:30 Mechanical Ventilator 70.00 04/21/21 03:30 184 11 68/50 95 Mechanical Ventilator 80.00 04/21/21 03:15 122 20 91/56 96 Mechanical Ventilator 80.00 04/21/21 03:00 122 20 96/55 94 Mechanical Ventilator 80.00 04/21/21 02:45 137 20 97/53 90 Mechanical Ventilator 80.00 04/21/21 02:30 121 19 92/55 96 Mechanical Ventilator 80.00 04/21/21 02:30 121 20 100 80 04/21/21 02:15 122 20 93/53 95 Mechanical Ventilator 80.00 04/21/21 02:00 121 19 89/50 97 Mechanical Ventilator 80.00 04/21/21 01:59 Mechanical Ventilator 80.00 04/21/21 01:47 90 04/21/21 01:45 121 20 92/51 98 Mechanical Ventilator 90.00 04/21/21 01:30 94/55 Mechanical Ventilator 90.00 04/21/21 01:29 122 92/56 04/21/21 01:15 118 20 92/50 99 Mechanical Ventilator 90.00 04/21/21 01:00 118 22 88/51 97 Mechanical Ventilator 90.00 04/21/21 01:00 117 04/21/21 00:54 116 87/52 04/21/21 00:45 86 20 109/62 93 Mechanical Ventilator 90.00 04/21/21 00:30 87 20 110/61 93 Mechanical Ventilator 90.00 04/21/21 00:18 115 84/50 04/21/21 00:15 86 20 112/61 93 Mechanical Ventilator 90.00 04/21/21 00:00 116 20 86/47 100 Mechanical Ventilator 90.00 04/21/21 00:00 Mechanical Ventilator 90 04/20/21 23:56 116 85/48 04/20/21 23:01 37.5 04/20/21 23:00 114 19 89/49 100 Mechanical Ventilator 90.00 04/20/21 22:45 112 19 87/48 100 Mechanical Ventilator 90.00 04/20/21 22:35 112 85/47 04/20/21 22:30 111 20 85/47 100 Mechanical Ventilator 90.00 04/20/21 22:20 113 87/49 04/20/21 22:15 111 20 87/49 100 Mechanical Ventilator 90.00 04/20/21 22:00 110 20 89/48 98 Mechanical Ventilator 90.00 04/20/21 21:47 90 04/20/21 21:45 107 19 91/43 98 04/20/21 21:45 107 19 91/43 98 Mechanical Ventilator 90.00 04/20/21 21:45 Mechanical Ventilator 90.00 04/20/21 21:38 109 20 99 100 04/20/21 21:30 108 20 85/48 96 Mechanical Ventilator 90.00 04/20/21 21:25 86/49 04/20/21 21:15 108 20 86/49 96 Mechanical Ventilator 90.00 04/20/21 21:00 107 19 89/47 97 Mechanical Ventilator 90.00 04/20/21 20:45 109 19 87/47 97 Mechanical Ventilator 90.00 04/20/21 20:40 108 20 91/53 95 Mechanical Ventilator 90.00 04/20/21 20:40 91/53 04/20/21 20:30 109 19 90/53 95 Mechanical Ventilator 90.00 04/20/21 20:20 108 20 93/43 95 Mechanical Ventilator 90.00 04/20/21 20:15 106 20 95 Mechanical Ventilator 90.00 04/20/21 20:10 108 19 92/45 93 Mechanical Ventilator 90.00 04/20/21 20:10 92/45 04/20/21 20:00 126 20 103/56 95 Mechanical Ventilator 90.00 04/20/21 20:00 36.3 04/20/21 20:00 Mechanical Ventilator 100 04/20/21 19:50 107 20 101/53 94 Mechanical Ventilator 90.00 04/20/21 19:45 107 20 101/53 94 Mechanical Ventilator 90.00 04/20/21 19:40 106 19 106/43 92 Mechanical Ventilator 90.00 04/20/21 19:40 Mechanical Ventilator 04/20/21 19:40 36.9 16 106/43 (64) 92 Mechanical Ventilator 04/20/21 19:40 100 04/20/21 19:35 103 20 90 100 04/20/21 19:35 106 20 100/50 89 Mechanical Ventilator 90.00 04/20/21 19:30 105 19 87/43 Mechanical Ventilator 90.00 04/20/21 19:30 16 100/50 (67) 94 Mechanical Ventilator 04/20/21 19:30 Mechanical Ventilator 04/20/21 19:20 105 19 101/58 83 Mechanical Ventilator 90.00 04/20/21 19:20 16 101/58 (72) 94 Mechanical Ventilator 04/20/21 19:15 105 19 83 Mechanical Ventilator 90.00 04/20/21 19:15 Mechanical Ventilator 04/20/21 19:12 105 20 106/56 Mechanical Ventilator 90.00 04/20/21 19:10 16 106/56 (73) 93 Mechanical Ventilator 04/20/21 19:00 130 04/20/21 19:00 Mechanical Ventilator 04/20/21 19:00 16 117/63 (81) 94 Mechanical Ventilator 04/20/21 19:00 130 40 117/63 87 Mechanical Ventilator 90.00 04/20/21 18:51 100 104/56 04/20/21 18:50 16 120/68 (85) 92 Mechanical Ventilator 04/20/21 18:49 Mechanical Ventilator 100.00 04/20/21 18:47 Mechanical Ventilator 04/20/21 18:47 36.8 16 128/71 (90) 92 Mechanical Ventilator 04/20/21 16:00 114 26 100 Nasal Cannula 6.00 04/20/21 15:52 92 Nasal Cannula 6.00 04/20/21 15:34 36.2 04/20/21 15:30 131 23 86/43 100 04/20/21 15:15 126 32 100 04/20/21 15:00 124 Room Air 04/20/21 14:45 125 04/20/21 14:36 Non Rebreather 15.00 04/20/21 14:30 126 26 04/20/21 14:15 126 26 88 04/20/21 14:00 126 27 83 04/20/21 14:00 125 30 Room Air 04/20/21 13:45 124 31 84 04/20/21 13:33 121 27 115/53 79 04/20/21 13:30 120 27 90 04/20/21 13:15 122 26 93 04/20/21 13:00 122 28 88/56 82 04/20/21 13:00 122 28 88/56 88 Room Air 04/20/21 12:50 124 04/20/21 12:45 123 23 72/54 88 04/20/21 12:30 123 81/64 04/20/21 12:15 124 24 89 04/20/21 12:00 101 26 114/90 89 Room Air 04/20/21 11:55 92 Nasal Cannula 2.00 04/20/21 11:47 95 04/20/21 11:45 104 28 114/89 94 04/20/21 11:39 35.7 04/20/21 11:37 95 Nasal Cannula 2.00 04/20/21 11:30 121 19 97/66 90 04/20/21 11:16 110 94/46 04/20/21 11:15 111 28 94/46 97 04/20/21 11:00 110 27 97/66 100 Room Air 04/20/21 10:00 105 26 93/60 95 Room Air I & O 04/21/21 07:00 Intake Total 8823 ml Output Total 1360 ml Balance 7463 ml Capillary Refill : Greater Than 3 Seconds General Appearance: No Apparent Distress HEENT: TMs Normal Neck: Supple Respiratory: Decreased Breath Sounds, Wheezing Cardiovascular: Regular Rate, Rhythm Gastrointestinal: soft, tenderness Extremity: Slow Capillary Refill Neurologic/Psychiatric: Other (vent/sedated) Skin: Normal Color Lymphatic: No Adenopathy Results Lab Laboratory Tests 04/20/21 11:45: Stool Occult Blood Immunoassay POSITIVEH 04/20/21 12:22: Sodium Level 133L, Potassium Level 5.0, Chloride Level 108H, Carbon Dioxide Level 12L, Anion Gap 13, Blood Urea Nitrogen 55H, Creatinine 2.11H, Estimat Glomerular Filtration Rate 24, BUN/Creatinine Ratio 26, Glucose Level 67L, Lactic Acid Level 2.72*H, Calcium Level 7.0L 04/20/21 14:30: Lactic Acid Level 3.00*H, Blood Gas Puncture Site Venous sample, Blood Gas Patient Temperature 35.7, Arterial Blood pH 7.04*L, Arterial Blood Partial P ressure CO2 56H, Arterial Blood Partial Pressure O2 139H, Arterial Blood HCO3 15*L, Arterial Blood Total CO2 16.8L, Arterial Blood Oxygen Saturation 97, Arterial Blood Base Excess -14.0L, Chidi Test Venous sample, Blood Gas Ventilator Setting NA, Blood Gas Inspired Oxygen Venous sample 04/20/21 17:14: Blood Gas Puncture Site NA, Blood Gas Patient Temperature 37.0, Arterial Blood pH 7.07*L, Arterial Blood Partial Pressure CO2 72*H, Arterial Blood Partial Pressure O2 114H, Arterial Blood HCO3 20L, Arterial Blood Total CO2 21.9, Arterial Blood Oxygen Saturation 97, Arterial Blood Base Excess -9.1L, Chidi Test NA, Blood Gas Ventilator Setting YES, Blood Gas Inspired Oxygen 10% 04/20/21 17:40: Lactic Acid Level 4.45*H 04/20/21 17:50: Activated Partial Thromboplast Time 113H 04/20/21 20:36: Lactic Acid Level 4.77*H, White Blood Count 1.8L, Red Blood Count 2.85L, Hemoglobin 7.2#L, Hematocrit 24L, Mean Corpuscular Volume 83, Mean Corpuscular Hemoglobin 25, Mean Corpuscular Hemoglobin Concent 31L, Red Cell Distribution Width 16.5H, Platelet Count 165, Mean Platelet Volume 11.7, Immature Granulocyte % (Auto) 1, Neutrophils (%) (Auto) 79H, Lymphocytes (%) (Auto) 12, Monocytes (%) (Auto) 8, Eosinophils (%) (Auto) 0, Basophils (%) (Auto) 0, Neutrophils # (Auto) 1.4L, Lymphocytes # (Auto) 0.2L, Monocytes # (Auto) 0.1, Eosinophils # (Auto) 0.0, Basophils # (Auto) 0.0, Immature Granulocyte # (Auto) 0.0, Sodium Level 139, Potassium Level 4.4, Chloride Level 106, Carbon Dioxide Level 18L, Anion Gap 15H, Blood Urea Nitrogen 55H, Creatinine 2.29H, Estimat Glomerular Filtration Rate 22, BUN/Creatinine Ratio 24, Glucose Level 103, Calcium Level 6. 1L 04/20/21 23:10: Lactic Acid Level 4.27*H 04/20/21 23:14: Glucometer 107 04/21/21 00:25: Blood Gas Puncture Site LEFT RADIAL, Blood Gas Patient Temperature 37.5, Arterial Blood pH 7.23*L, Arterial Blood Partial Pressure CO2 55H, Arterial Blood Partial Pressure O2 88, Arterial Blood HCO3 22L, Arterial Blood Total CO2 23.7, Arterial Blood Oxygen Saturation 95, Arterial Blood Base Excess -4.2L, Al bro Test YES-POS, Blood Gas Ventilator Setting YES, Blood Gas Inspired Oxygen 90% 04/21/21 03:37: White Blood Count 4.1L, Red Blood Count 3.07L, Hemoglobin 7.7L, Hematocrit 25L, Mean Corpuscular Volume 81, Mean Corpuscular Hemoglobin 25, Mean Corpuscular Hemoglobin Concent 31L, Red Cell Distribution Width 16.8H, Platelet Count 215, Mean Platelet Volume 12.4H, Immature Granulocyte % (Auto) 0, Neutrophils (%) (Auto) 85H, Lymphocytes (%) (Auto) 8L, Monocytes (%) (Auto) 7, Eosinophils (%) (Auto) 0, Basophils (%) (Auto) 0, Neutrophils # (Auto) 3.5, Lymphocytes # (Auto) 0.3L, Monocytes # (Auto) 0.3, Eosinophils # (Auto) 0.0, Basophils # (Auto) 0.0, Immature Granulocyte # (Auto) 0.0, Sodium Level 139, Potassium Level 4.9, Chloride Level 106, Carbon Dioxide Level 19L, Anion Gap 14, Blood Urea Nitrogen 59H, Creatinine 2.70#H, Estimat Glomerular Filtration Rate 18, BUN/Creatinine Ratio 22, Glucose Level 100, Lactic Acid Level 4.56*H, Calcium Level 5.9*L, Corrected Calcium 7.4L, Phosphorus Level 6.1H, Magnesium Level 2.8H, Total Bilirubin 0.5, Aspartate Amino Transf (AST/SGOT) 823H, Alanine Aminotransferase (ALT/SGPT) 376H, Alkaline Phosphatase 46, Total Protein 4.2L, Albumin 2.1L, Triglycerides Level 121 04/21/21 04:10: Blood Gas Puncture Site RIGHT RADIAL, Blood Gas Patient Temperature 37.5, Arterial Blood pH 7.24*L, Arterial Blood Partial Pressure CO2 52H, Arterial Blood Partial Pressure O2 83, Arterial Blood HCO3 21L, Arterial Blood Total CO2 22.6, Arterial Blood Oxygen Saturation 93L, Arterial Blood Base Excess -5.1L, Chidi Test YES-POS, Blood Gas Ventilator Setting YES, Blood Gas Inspired Oxygen 80% Microbiology 04/19/21 MRSA Screen - Final, Complete MRSA not isolated 04/19/21 Blood Culture - Preliminary, Resulted No growth Assessment/Plan Assessment/Plan Assess & Plan/Chief Complaint s/p colorectal LAR and extended left hemicolectomy for ischemic bowel multisytem organ failure. currently on 2 pressors and acidotic with renal failure. continue critical care. RICARDO BAE MD Apr 21, 2021 09:11
[2021-04-21] MEDS ORDERED: FLUCONAZOLE 200 MG/100 ML 100 ML IV ONE (10:00)
--- NOTE | 2021-04-21 10:20 | Anesthesia-General Post-Op ---
General Patient Condition Mental Status/LOC: Unreactive (SEDATED/VENTILATED ) Cardiovascular: Unsatisfactory (VASOPRESSIN/PHENYLEPHRINE GTT ) Nausea/Vomiting: Absent Respiratory: Unsatisfactory (REQUIRING MV, WITH 100%FIO2, PEEP 6 SPO2 88%) Pain: Controlled (N/A ) Complications: Present Post Op Complications Complications None Follow Up Care/Instructions Patient Instructions None needed. Anesthesia/Patient Condition Patient Condition D/C home per [facility] Criteria: No ALFIE FISHMAN CRNA Apr 21, 2021 10:19
[2021-04-21] MEDS ORDERED: NS IV 1000 ML 1,000 ML IV SCH (10:30)
--- NOTE | 2021-04-21 10:38 | Diagnostic Imaging Report ---
Indication: Respiratory failure COMPARISON: 04/20/2021 TECHNIQUE: Single frontal radiograph of the chest dated 04/21/2021. FINDINGS: Right IJ central venous catheter is stable. Endotracheal tube and enteric catheter appear unchanged. The cardiac silhouette appears stable. No significant pulmonary vascular congestion. Worsening left basilar pleural-parenchymal opacity with associated left perihilar opacities. The right lung appears clear. No significant right pleural effusion. No pneumothorax. Osseous structures appear stable. IMPRESSION: Worsening small left basilar pleural-parenchymal opacity, related to a combination of pleural fluid with adjacent atelectasis and/or infiltrate. This is associated with worsening left perihilar atelectasis and/or infiltrate. Unchanged lines and tubes. Dictated by: Dictated on workstation # [id number]
--- NOTE | 2021-04-21 10:59 | Progress Note - Hospitalist ---
Subjective HPI/CC On Admission Date Seen by Provider: Apr 21, 2021 Time Seen by Provider: 10:30 Chief complaint: Abdominal pain History of present illness: This is a 60-year-old white female clinic patient of [facility] who presented to the ER with complaints of severe abdominal pain. Suspicion for ischemic bowel so heparin drip was started. Large amount of stool noted on CT scan so NG tube was placed in preparation of performing endoscopies on Thursday but hypotension occurred evidence of significant increase in abdominal pain suspicion for bowel so she was emergently taken to surgery status post resection of partial colon. She requested DNR Subjective/Events-last exam Patient still ventilated Critical illness noted with 2 pressors with IV fluids and maximum critical care meds Sister at bedside Hemoglobin 7.7 receiving blood ABG shows 7.2 Creatinine went from 2.2-2.7 Lactic acid still elevated at 4.56 AST and ALT are 823 and 376 respectively Heparin drip was discontinued Vent settings are tidal volume of 450 with respiratory rate of 16 and PEEP of 5 Colostomy no output Decreased urinary output given IV fluid Lungs are coarse Updated sister with poor prognosis Focused Exam Lactate Level 04/20/21 20:36: Lactic Acid Level 4.77*H 04/20/21 23:10: Lactic Acid Level 4.27*H 04/21/21 03:37: Lactic Acid Level 4.56*H Objective Exam Vital Signs Vital Signs Date Time Temp Pulse Resp B/P (MAP) Pulse Ox O2 Delivery O2 Flow Rate FiO2 04/21/21 15:14 79 20 100 04/21/21 15:00 117/74 Mechanical Ventilator 100.00 04/21/21 14:00 84 04/21/21 12:00 36.7 Capillary Refill : Greater Than 3 Seconds General Appearance: Chronically ill, Other (Sedated and ventilated) Respiratory: Crackles, Decreased Breath Sounds, Wheezing Cardiovascular: Regular Rate, Rhythm Results/Procedures Lab Laboratory Tests 04/20/21 20:36 04/21/21 03:37 04/21/21 13:30 Patient resulted labs reviewed. Assessment/Plan Assessment and Plan Assess & Plan/Chief Complaint Assessment: Acute abdominal pain which progressed in severity and taken emergently to surgery requiring partial colectomy with diverting colostomy due to ischemic bowel Vent dependent Hypotension placed on IV fluids and pressor therapy Smoker Coarse breath sounds Postoperative anemia receiving transfusions Elevated liver enzymes due to liver shock Worsening acute kidney injury Plan: Emergent surgery required yesterday Supportive care DNR as patient requested Critical Care Critically Ill Patient TIFFANIE KRAMER DO Apr 21, 2021 10:59
[2021-04-21] MEDS: PIPERACILLIN/TAZO 4.5 GM/NS 100 ML IV SCH ×2 (11:39)
[2021-04-21] MEDS ORDERED: meTOprolol 5 MG/5 ML (LOPRESSOR) VIAL ONE (11:57)
[2021-04-21] MEDS ORDERED: meTOprolol 5 MG/5 ML (LOPRESSOR) VIAL IV SCH (12:00)
[2021-04-21] MEDS ORDERED: inSUlin ASPART (NovoLOG) 1 UNIT/0.01 ML (CHARGE PER UNIT) SC SCH (12:00)
[2021-04-21] MEDS ORDERED: DIGOXIN 0.25 MG/ML (LANOXIN) 2 ML AMP ONE (12:19)
[2021-04-21] MEDS ORDERED: DIGOXIN 0.25 MG/ML (LANOXIN) 2 ML AMP IV ONE (12:30)
[2021-04-21] MEDS ORDERED: DIGOXIN 0.25 MG/ML (LANOXIN) 2 ML AMP IV NR (12:30)
[2021-04-21] MEDS ORDERED: AMIODARONE FOR BOLUS 150 MG in D5W 100 ML IVPB 100 ML IV NR (14:30)
[2021-04-21] MEDS ORDERED: AMIODARONE INJECTION 450 MG in D5W IV SOLUTION (EXCEL) 250 ML IV SCH (14:30)
[2021-04-21] MEDS ORDERED: LACTATED RINGERS 1,000 ML IV NR (14:30)
[2021-04-21 14:49] LABS: ABG BASE EXCESS -6.7 MMOL/L (-2.5-2.5); ABG OXYGEN SATURATION 60 % (94-100); ABG PCO2 55 MMHG (35-45)
[2021-04-21 14:53] LABS: ABG PH 7.19 (7.37-7.43); ABG PO2 37 MMHG (79-93); ALLENS TEST YES-POS; INSPIRED O2 100%
[2021-04-21 14:54] LABS: PATIENT TEMP 36.5; VENTILATOR YES
[2021-04-21] MEDS: NS IV 500 ML 500 ML IV SCH (15:00)
[2021-04-21] MEDS ORDERED: ONDANSETRON 4 MG/2 ML (SDV) Z0FRAN IVP PRN (16:15)
[2021-04-21] MEDS ORDERED: RT-ALBUTEROL/IPRATROPIUM 3 ML (DUONEB) VIAL INH PRN (16:15)
[2021-04-21] MEDS ORDERED: GLYCOPYRROLATE 0.2 MG/ML (ROBINUL) 2 ML VIAL IV PRN (16:15)
[2021-04-21] MEDS ORDERED: LORazepam INJ 2 MG/ML (ATIVAN) VIAL IVP PRN (16:15)
[2021-04-21] MEDS ORDERED: morphine INJ 4 MG/ML 1 ML (VIAL/SYRINGE) IV PRN (16:15)
[2021-04-21] MEDS ORDERED: ARTIFICAL TEARS 0.4 ML UNIT DOSE (REFRESH PLUS) OU PRN (16:15)
[2021-04-21] MEDS ORDERED: SALIVA STIMULANT MOUTH SPRAY (BIOTENE) 1.5 OZ MM PRN (16:15)
[2021-04-21] MEDS ORDERED: ACETAMINOPHEN 650 MG SUPP (TYLENOL) PR PRN (16:15)
[2021-04-22] MEDS ORDERED: KCL 20 MEQ TAB (K-DUR) PO SCH (06:00)
[2021-04-22] MEDS ORDERED: POTASSIUM CL 10MEQ/50ML IVPB 50 ML IV SCH (06:00)
[2021-04-22] MEDS ORDERED: MAGNESIUM 1 GM/100 ML IVPB 100 ML IV SCH (06:00)
[2021-04-22] MEDS ORDERED: FLUCONAZOLE 200 MG/100 ML 50 ML, EMPTY IV BAG (PVC) 1 EA IV SCH ×2 (09:00)
--- NOTE | 2021-05-01 11:46 | DISCHARGE SUMMARY ---
DATE OF SERVICE: 04/21/2021 DATE OF EXPIRATION: 04/21/2021 at 16:25. ATTENDING PRIMARY CARE PHYSICIAN: Dr. Michael Spivey. HOSPITAL COURSE: The patient is a 60-year-old female, who presented to the [facility] Emergency Department with complaints of abdominal pain, starting at around midnight. She also had reported some associated nausea; however, no vomiting. She also had stated that she had not had a bowel movement for several days. She had also reported some anorexia; however, was able to drink liquids and eat some foods. She did not report having any previous history of any abdominal surgeries as well as not having these type of symptoms before in the past. A CT scan was performed, which did show a large volume of stool throughout the colon without evidence of colitis or diverticulitis. There was also a short segment of luminal narrowing in the mid upper rectum as well. The patient was admitted, kept n.p.o. and a nasogastric tube placed as well as anticoagulation with heparin drip. She also did have other medical comorbidities including hypertension and COPD and was an active smoker. The patient was seen and continued to have abdominal pain; however, she did not have any fevers and her white count was normal. We had started some oral laxatives as well as suppositories. Despite this that she was not able to have significant bowel movement. Her overall clinical scenario did worsen with increased abdominal pain and her lactic acid did elevate, which did raise a suspicion for ischemic colitis. Even though she was a DNR as well as a DNI, these were rescinded per the patient and family for the sake of surgery. On 04/20/2021, she underwent an exploratory laparotomy and was found to have an ischemic colon starting at the proximal transverse colon extending to the rectosigmoid junction. This area was thought to be also contained perforation in the region. She then underwent an extended left hemicolectomy of the devascularized bowel as well as low anterior colorectal resection, Marlin's pouch and end colostomy. 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 The patient tolerated the procedure well and was sent back to the Intensive Care Unit. The patient remained critical; however, was stable and remained on the ventilator as well as two vasopressors, which were being weaned down. This was managed by EICU. The patient's condition as well as findings were explained in depth to the patient's next of kin, which sister as well as other family members. It was explained to them that with mesenteric ischemia and gut as well as the surgery and her other underlying medical comorbidities that there was significant risk of morbidity and mortality. The patient continued to be stable; however, again the next of kin, which was her sister understood that she did not want to be on a ventilator as well as a cardiac pressors that would maintain blood perfusion and viability. The sister had an in-depth conversation with the rest of the family and their unanimous decision was to proceed with making her comfort care with a morphine drip and eventually the vasopressors were weaned down as well as the ventilator. Within several minutes she did not show any signs of life and was pronounced at 16:25 on 04/22/2021. We then accommodated the request for the home of their choice which the patient was timely transported to. Job ID: [id number] DocumentID: [id number] Dictated Date: 04/30/2021 17:07:37 Director Marketing Date: 05/01/2021 11:45:57 Dictated By: RICARDO BAE MD MTDD
== END 2021-04-21 16:25 | disposition expired | DRG 853 ==
LOC: EDUNIT# 15:45 → ER 15:46 → ICU 17:02
PROVIDERS: ADMIT Surgery; ATTEND Surgery
PROC: 0DBP0ZZ Excision of Rectum, Open Approach (ICD-10-PCS; 2021-04-20)
PROC: 0D1L0Z4 Bypass Transverse Colon to Cutaneous, Open Approach (ICD-10-PCS; 2021-04-20)
PROC: 5A1935Z Respiratory Ventilation, Less than 24 Consecutive Hours (ICD-10-PCS; 2021-04-20)
PROC: 0DTG0ZZ Resection of Left Large Intestine, Open Approach (ICD-10-PCS; principal; 2021-04-20 16:32)
PROC: 5A2204Z Restoration of Cardiac Rhythm, Single (ICD-10-PCS; 2021-04-21)
DX: A41.9 Sepsis, unspecified organism (principal); K72.00 Acute and subacute hepatic failure without coma; K65.9 Peritonitis, unspecified; K63.1 Perforation of intestine (nontraumatic); K55.9 Vascular disorder of intestine, unspecified; C19 Malignant neoplasm of rectosigmoid junction; N17.9 Acute kidney failure, unspecified; E87.2 Acidosis; D62 Acute posthemorrhagic anemia; K56.690 Other partial intestinal obstruction; Z66 Do not resuscitate; Z51.5 Encounter for palliative care; Z20.822 Contact with and (suspected) exposure to COVID-19; I10 Essential (primary) hypertension; F32.A Depression, unspecified; F17.210 Nicotine dependence, cigarettes, uncomplicated; J44.9 Chronic obstructive pulmonary disease, unspecified; M19.90 Unspecified osteoarthritis, unspecified site; I95.9 Hypotension, unspecified; K59.00 Constipation, unspecified; E86.0 Dehydration; E87.5 Hyperkalemia; R13.10 Dysphagia, unspecified; I48.91 Unspecified atrial fibrillation
CPT/HCPCS: 36415; 36556; 71045; 74018; 74019; 74177; 80048; 80053; 82274; 82805; 82947; 83605; 83690; 83735; 84100; 84478; 85007; 85014; 85018; 85025; 85027; 85610; 85730; 86850; 86900; 86901; 86920; 87040; 87081; 87636; 88309; 88341; 88342; 93005; 94002; 94640; 94799; 96374; 96375; 96376